=== PATIENT | male | born 1980 | race Caucasian/White ===

== ENCOUNTER 2020-09-09 15:06 | Emergency (ER) | payer OTHER ==
[2020-09-09 15:20] VITALS: O2SAT 97
[2020-09-09] MEDS ORDERED: MORPHINE SULFATE 4 MG INJ IV ONE (15:26)
[2020-09-09] MEDS ORDERED: Zofran 4 MG/2 ML VIAL IV ONE (15:26)
[2020-09-09] MEDS ORDERED: Zofran 4 MG/2 ML VIAL ONE (16:16)
[2020-09-09] MEDS ORDERED: MORPHINE SULFATE 4 MG INJ ONE (16:16)
[2020-09-09 16:18] LABS: Absolute Neutrophil Ct (ANC) 3.68 (1.4-6.9); BASOPHIL % 0.5 % (0.0-0.4); Basophil (Absolute #) 0.03 (0-0.4); Eosinophil % 1.1 % (0.00-5.0); Eosinophil (Absolute #) 0.06 (0-0.5); Hematocrit 44.8 % (42-50); Hemoglobin 14.7 gm/dl (12.5-18.0); Lymphocyte (Absolute #) 1.52 (1.0-4.6); Lymphocytes % 26.8 % (24.0-44.0); Mean Cell Volume 88.5 fl (78-100); Mean Corpuscular Hemoglobin 29.1 pg (26-32); Mean Corpuscular Hgb Concent. 32.8 g/dl (32-36); Mean Platelet Volume 9.1 fl (7.5-11.0); Monocyte (Absolute #) 0.39 (0.0-1.3); Monocytes % 6.9 % (0.0-12.0); Neutrophil % 64.7 % (36.0-66.0); Platelet Count 247 K/mm3 (150-450); Red Blood Count 5.06 M/mm3 (4.1-5.6); Red Cell Distribution Width 13.5 % (11.5-14.0); White Blood Count 5.7 K/mm3 (4.0-10.5)
[2020-09-09 16:23] LABS: Appearance SLIGHTLY CLOUDY (CLEAR); Bilirubin NEGATIVE (NEGATIVE); Blood NEGATIVE Ery/ul (0-5); Glucose NEGATIVE (NEGATIVE); Ketones NEGATIVE (NEGATIVE); Leukocyte Esterase NEGATIVE (NEGATIVE); Mucus SLIGHT /HPF (NEGATIVE); Nitrite NEGATIVE (NEGATIVE); Protein,Urine Dip NEGATIVE (Negative); Specific Gravity 1.023 (1.005-1.025); Urobilinogen NEGATIVE mg/dL (0-1)
--- NOTE | 2020-09-09 16:26 | XRAY ---
Indication: Right scrotal pain. Epididymitis versus hernia. Two-dimensional testicular sonogram performed. Comparison: None Both testicles homogeneous in echogenicity with normal color flow. Right testicle measures 4.7 x 2.8 x 3.9 cm and the left measures 4.8 x 2.5 x 3.8 cm. A few tiny bilateral epididymal cysts, largest 1 cm on the right. Negative for epididymitis. Tiny nonspecific bilateral hydroceles. No suspicious solid extratesticular mass. Impression: A few tiny bilateral epididymal cysts. Remaining testicular sonogram is negative.
[2020-09-09 16:31] LABS: ALBUMIN 4.8 g/dL (3.5-5.0); ALKALINE PHOSPHATASE 64 U/L (38-126); ANION GAP 15.4 MEQ/L (5-15); BLOOD UREA NITROGEN 11 mg/dL (9-20); CHLORIDE 100 mmol/L (98-107); Carbon Dioxide 27 mmol/L (22-30); Creatinine 1 0.91 mg/dL (0.66-1.25); EST GLOMERULAR FILTRATION RATE > 60.0 ML/MIN; Glucose 87 mg/dL (74-106); Potassium 4.6 mmol/L (3.5-5.1); SGOT/AST 37 U/L (17-59); SGPT/ALT 27 U/L (0-50); SODIUM 137 mmol/L (137-145); Total Protein 8.2 g/dL (6.3-8.2)
--- NOTE | 2020-09-09 16:56 | XRAY ---
Indication: Right testicle pain 3 weeks. Inguinal hernia. Multiple contiguous axial images obtained through the pelvis only using 80 cc Isovue 370 contrast. Comparison: None Visualized bowel loops appear nonobstructed. Normal appendix. No free fluid/air. Visualized inferior kidneys, ureters, bladder, arteries, and veins are unremarkable. No pathologic pelvic or inguinal lymphadenopathy. No ventral or inguinal hernias either. Visualized osseous structures intact. Impression: Negative CT pelvis with contrast exam.
[2020-09-09 18:01] VITALS: BP 155/96; PULSE 76
--- NOTE | 2020-09-09 18:09 | ERPHSYRPT ---
- History of Present Illness Time Seen by Provider: 09/09/20 15:13 Source: patient Exam Limitations: no limitations Patient Subjective Stated Complaint: Pt states that he has an ingunal hernia and he doesn't feel anything popped out but he is having squeezing pain in his right testicle Triage Nursing Assessment: Pt brought to the ER by his girlfriend, vitals wnl, rates testicle pain as 8/10, pulses normal, skin n/w/d, doesn't appear to be in any distress Physician History: 39 years old male with history of GERD ulcerative colitis presented in the ER with chief complaint of right inguinal/scrotal pain for the last 2 weeks intermittently progressively worsening. Patient reports sharp shooting pain in the right groin/testicle which is aggravated with activity and partial relief with being still but does not completely go away. Patient was seen recently at another ER with CT showing right inguinal hernia. Patient is worried about getting obstruction/incarceration of hernia. Denies any difficulty urination. Denies any history of STD/discharge. Timing/Duration: week(s) (2), gradual onset, worse Activites at Onset: rest Quality: sharpness Onset Location: groin, scrotal, right testicle Pain Radiation: groin Severity of Pain-Max: severe Severity of Pain-Current: severe Modifying Factors: Improves With: lying down, position. Worsens With: movement, palpation Associated Symptoms: mass, No abdominal pain, No fever, No loss of bladder control, No lower back pain Sexual intercourse history: non-contributory Allergies/Adverse Reactions: metronidazole [From Flagyl] Allergy (Verified 09/09/20 15:20) Home Medications: Atorvastatin Calcium [Lipitor] 40 mg PO DAILY 09/09/20 [History] Diltiazem HCl [Cardizem] 60 mg PO BID 09/09/20 [History] Metoprolol Tartrate 25 mg [Lopressor 25MG Tab] 25 mg PO BID 09/09/20 [History] Omeprazole Magnesium [Prilosec Otc] 40 mg PO DAILY 09/09/20 [History] PANTOPRAZOLE 40 mg Tablet [Protonix 40MG Tablet] 40 mg PO BID 09/09/20 [History] Sucralfate 1 gm [Carafate 1 GM] 1,000 mg PO QID 09/09/20 [History] Tofacitinib Citrate [Xeljanz Xr] 22 mg PO DAILY 09/09/20 [History] lisinopriL [Zestril] 30 mg PO DAILY 09/09/20 [History] Travel Risk - International Travel Have you traveled outside of the country in past 3 weeks: No - Coronavirus Screening Are you exhibiting any of the following symptoms?: No Close contact with a COVID-19 positive Pt in past 14-21 Days: No - Vaccine Status Have you recieved a Covid-19 vaccination: No - Past Medical History Pertinent Past Medical History: Yes Cardiac History: High Cholesterol, Hypertension Other Medical History: Assending aoritc anuerysm - Past Surgical History Past Surgical History: Yes Other Surgical History: 2 skin grafts. hemmroidectomy. anal spincterotomy - Social History Smoking Status: Former smoker Exposure to second hand smoke: No Drug Use: marijuana Patient Lives Alone: No - Review of Systems Constitutional: No Symptoms Eyes: No Symptoms Ears, Nose, & Throat: No Symptoms Respiratory: No Symptoms Cardiac: No Symptoms Abdominal/Gastrointestinal: No Symptoms Genitourinary Symptoms: Testicle Pain Musculoskeletal: No Symptoms Skin: No Symptoms Neurological: No Symptoms Psychological: No Symptoms Endocrine: No Symptoms Hematologic/Lymphatic: No Symptoms Immunological/Allergic: No Symptoms - Nursing Vital Signs Nursing Vital Signs: Initial Vital Signs Temperature 97.3 F 09/09/20 15:11 Pulse Rate 66 09/09/20 15:11 Blood Pressure 136/94 09/09/20 15:11 O2 Sat by Pulse Oximetry 97 09/09/20 15:11 Pain Scale Pain Intensity 7 - Physical Exam General Appearance: no apparent distress, alert Eye Exam: PERRL/EOMI, eyes nml inspection Ears, Nose, Throat Exam: normal ENT inspection, pharynx normal Neck Exam: normal inspection, supple, full range of motion Respiratory Exam: normal breath sounds, lungs clear Cardiovascular Exam: regular rate/rhythm, normal heart sounds Gastrointestinal/Abdomen Exam: soft, normal bowel sounds, No tenderness Male Genital Exam: normal genitalia, no hernia, epididymal tenderness, testicular tenderness (R) (Positive cremasteric reflex. Negative expansile cough impulse on the right.), No erythema, No scrotum tenderness (R), No scrotum tenderness (L), No inguinal lymphadenopathy Back Exam: normal inspection Extremity Exam: normal inspection, normal range of motion Neurologic Exam: alert, oriented x 3, cooperative Skin Exam: normal color SpO2 Interpretation: normal SpO2: 97 O2 Delivery: Room Air Ordered Tests: Active Orders 24 hr Category Date Time Status IV Insertion STAT Care 09/09/20 15:26 Completed PELVIS WITH CONTRAST [CT] Stat Exams 09/09/20 16:00 Completed TESTICLE [US] Stat Exams 09/09/20 15:26 Completed CBC W DIFF Stat Lab 09/09/20 16:05 Completed CMP Stat Lab 09/09/20 16:05 Completed Lactic Acid Stat Lab 09/09/20 15:26 Completed UA W/RFX UR CULTURE Stat Lab 09/09/20 16:15 Completed Medication Summary Discontinued Medications Generic Name Dose Route Start Last Admin Trade Name Gatitoq PRN Reason Stop Dose Admin Morphine Sulfate 4 mg 09/09/20 15:26 09/09/20 16:17 Morphine Sulfate 4 Mg Inj IV 09/09/20 15:27 4 mg STAT ONE Administration Morphine Sulfate Confirm 09/09/20 16:16 Morphine Sulfate 4 Mg Inj Administered 09/09/20 16:17 Dose 4 mg .ROUTE .STK-MED ONE Ondansetron HCl 4 mg 09/09/20 15:26 09/09/20 16:17 Zofran 4 Mg/2 Ml Vial IV 09/09/20 15:27 4 mg STAT ONE Administration Ondansetron HCl Confirm 09/09/20 16:16 Zofran 4 Mg/2 Ml Vial Administered 09/09/20 16:17 Dose 4 mg .ROUTE .STK-MED ONE Lab/Rad Data: Laboratory Result Diagrams 09/09/20 16:05 09/09/20 16:05 Laboratory Results 09/09/20 09/09/20 09/09/20 Range/Units 16:15 16:05 16:05 WBC 5.7 (4.0-10.5) K/mm3 RBC 5.06 (4.1-5.6) M/mm3 Hgb 14.7 (12.5-18.0) gm/dl Hct 44.8 (42-50) % MCV 88.5 (78-100) fl MCH 29.1 (26-32) pg MCHC 32.8 (32-36) g/dl RDW 13.5 (11.5-14.0) % Plt Count 247 (150-450) K/mm3 MPV 9.1 (7.5-11.0) fl Gran % 64.7 (36.0-66.0) % Eos # (Auto) 0.06 (0-0.5) Absolute Lymphs (auto) 1.52 (1.0-4.6) Absolute Monos (auto) 0.39 (0.0-1.3) Lymphocytes % 26.8 (24.0-44.0) % Monocytes % 6.9 (0.0-12.0) % Eosinophils % 1.1 (0.00-5.0) % Basophils % 0.5 (0.0-0.4) % Absolute Granulocytes 3.68 (1.4-6.9) Basophils # 0.03 (0-0.4) Sodium 137 (137-145) mmol/L Potassium 4.6 (3.5-5.1) mmol/L Chloride 100 (98-107) mmol/L Carbon Dioxide 27 (22-30) mmol/L Anion Gap 15.4 H (5-15) MEQ/L BUN 11 (9-20) mg/dL Creatinine 0.91 (0.66-1.25) mg/dL Estimated GFR > 60.0 ML/MIN Glucose 87 (74-106) mg/dL Lactic Acid (0.4-2.0) Calcium 10.0 (8.4-10.2) mg/dL Total Bilirubin 0.80 (0.2-1.3) mg/dL AST 37 (17-59) U/L ALT 27 (0-50) U/L Alkaline Phosphatase 64 (38-126) U/L Serum Total Protein 8.2 (6.3-8.2) g/dL Albumin 4.8 (3.5-5.0) g/dL Urine Color NATHAN (YELLOW) Urine Appearance SLIGHTLY CLOUDY (CLEAR) Urine pH 5.0 (5-6) Ur Specific [place] 1.023 (1.005-1.025) Urine Protein NEGATIVE (Negative) Urine Ketones NEGATIVE (NEGATIVE) Urine Blood NEGATIVE (0-5) Pravin/ul Urine Nitrite NEGATIVE (NEGATIVE) Urine Bilirubin NEGATIVE (NEGATIVE) Urine Urobilinogen NEGATIVE (0-1) mg/dL Ur Leukocyte Esterase NEGATIVE (NEGATIVE) Urine WBC (Auto) NONE (0-5) /HPF Urine RBC (Auto) NONE (0-2) /HPF U Epithel Cells (Auto) NONE (FEW) /HPF Urine Bacteria (Auto) NONE (NEGATIVE) /HPF Urine Mucus (Auto) SLIGHT (NEGATIVE) /HPF Urine Culture Reflexed NO (NO) Urine Glucose NEGATIVE (NEGATIVE) mg/dL 09/09/20 Range/Units 15:26 WBC (4.0-10.5) K/mm3 RBC (4.1-5.6) M/mm3 Hgb (12.5-18.0) gm/dl Hct (42-50) % MCV (78-100) fl MCH (26-32) pg MCHC (32-36) g/dl RDW (11.5-14.0) % Plt Count (150-450) K/mm3 MPV (7.5-11.0) fl Gran % (36.0-66.0) % Eos # (Auto) (0-0.5) Absolute Lymphs (auto) (1.0-4.6) Absolute Monos (auto) (0.0-1.3) Lymphocytes % (24.0-44.0) % Monocytes % (0.0-12.0) % Eosinophils % (0.00-5.0) % Basophils % (0.0-0.4) % Absolute Granulocytes (1.4-6.9) Basophils # (0-0.4) Sodium (137-145) mmol/L Potassium (3.5-5.1) mmol/L Chloride (98-107) mmol/L Carbon Dioxide (22-30) mmol/L Anion Gap (5-15) MEQ/L BUN (9-20) mg/dL Creatinine (0.66-1.25) mg/dL Estimated GFR ML/MIN Glucose (74-106) mg/dL Lactic Acid 1.4 (0.4-2.0) Calcium (8.4-10.2) mg/dL Total Bilirubin (0.2-1.3) mg/dL AST (17-59) U/L ALT (0-50) U/L Alkaline Phosphatase (38-126) U/L Serum Total Protein (6.3-8.2) g/dL Albumin (3.5-5.0) g/dL Urine Color (YELLOW) Urine Appearance (CLEAR) Urine pH (5-6) Ur Specific [place] (1.005-1.025) Urine Protein (Negative) Urine Ketones (NEGATIVE) Urine Blood (0-5) Pravin/ul Urine Nitrite (NEGATIVE) Urine Bilirubin (NEGATIVE) Urine Urobilinogen (0-1) mg/dL Ur Leukocyte Esterase (NEGATIVE) Urine WBC (Auto) (0-5) /HPF Urine RBC (Auto) (0-2) /HPF U Epithel Cells (Auto) (FEW) /HPF Urine Bacteria (Auto) (NEGATIVE) /HPF Urine Mucus (Auto) (NEGATIVE) /HPF Urine Culture Reflexed (NO) Urine Glucose (NEGATIVE) mg/dL - Progress Progress: improved, pain not gone completely Progress Note: 09/09/20 18:07 39 years old is evaluated for right testicular/inguinal pain. Patient was convinced that he has a right inguinal hernia which I did not appreciate on exam. I have obtained ultrasound which is negative for any inguinal hernia mass, torsion or any other acute pathology but does have a small hydrocele cysts bilaterally. Patient does have tenderness in the epididymis. Because of significant tenderness I have obtained CT pelvis which is negative for any hernia mass as well. Has normal white count, unremarkable chemistries. No UTI. I would give him a short course of Cipro and pain medication and outpatient urology follow-up recommended. Counseled pt/family regarding: lab results, diagnosis, need for follow-up, rad results - Departure Departure Disposition: Home Clinical Impression: Testicular pain, right Condition: Stable Critical Care Time: No Referrals: DOCTOR,NO FAMILY [Primary Care Provider] - TARIQ KERR [COURTESY STAFF] - (1-2 days for reevaluation) Instructions: Epididymitis (DC) Additional Instructions: Use scrotal support. Use pain medications as needed. Follow-up with urology and primary care for reevaluation. Return to ER for worsening pain or if develop swelling/difficulty urination/fever chills etc. Prescriptions: Hydrocodone/APAP 5/325 [[place] 5/325 mg] 1 each PO Q6H PRN PRN #12 tablet MDD 4 PRN Reason: Pain Ciprofloxacin [Cipro 500 MG] 500 mg PO BID #14 tablet
== END 2020-09-09 18:28 | disposition home or self-care (01) ==
LOC: ED 15:06
DX: N50.811 Right testicular pain (principal)
CPT/HCPCS: 36000; 36415; 72193; 76870; 80053; 81001; 83605; 85025; 96374; 96375; 99284; J2270; J2405

== ENCOUNTER 2020-10-10 13:43 | Emergency (ER) | payer OTHER ==
--- NOTE | 2020-10-10 13:45 | ERPHSYRPT ---
- History of Present Illness Time Seen by Provider: 10/10/20 13:45 Historian: patient Exam Limitations: no limitations Physician History: This is a 39-year-old white male who has a history of ulcerative colitis, hypertension, gastroesophageal reflux disease and was told in August that he had a right inguinal hernia. Patient presents with complaints of pain in the right perineal area. Patient lives in [place] and is heading back to his home in [place]. However the pain has worsened over his stay here. Patient was seen in our emergency department on 09/09/2020 for same complaint. He was given a prescription of Cipro because it was felt that he might have epididymitis. His symptoms persisted and he was given a prescription at that different institution of Bactrim. He just completed that Bactrim antibiotic yesterday. During his work-up here on 09/09/2020 his ultrasound of the testicles were negative. CAT scan of the abdomen pelvis was also negative. Patient has been afebrile. He is also had diarrhea that appears to be worse with eating and drinking per his report. Patient does have an appointment to see a director of golf this month as well as an appointment to see a urologist later this month. States that he is allergic to Flagyl. Timing/Duration: week(s) (Several), other ([employer]) Activities at Onset: other (Persistent over the last month worse after eating and drinking) Quality: burning Abdominal Pain Onset Location: other (Right side perineal) Pain Radiation: no radiation Severity of Pain-Max: moderate Severity of Pain-Current: mild Modifying Factors: Improves With: eating (Brings on the diarrhea) Previous symptoms: same symptoms as today, recently seen, recently treated Allergies/Adverse Reactions: metronidazole [From Flagyl] Allergy (Verified 10/10/20 14:06) Home Medications: Atorvastatin Calcium [Lipitor] 40 mg PO DAILY 09/09/20 [History] Diltiazem HCl [Cardizem] 60 mg PO BID 09/09/20 [History] Metoprolol Tartrate 25 mg [Lopressor 25MG Tab] 25 mg PO BID 09/09/20 [History] Omeprazole Magnesium [Prilosec Otc] 40 mg PO DAILY 09/09/20 [History] PANTOPRAZOLE 40 mg Tablet [Protonix 40MG Tablet] 40 mg PO BID 09/09/20 [History] Sucralfate 1 gm [Carafate 1 GM] 1,000 mg PO QID 09/09/20 [History] Tofacitinib Citrate [Xeljanz Xr] 22 mg PO DAILY 09/09/20 [History] lisinopriL [Zestril] 30 mg PO DAILY 09/09/20 [History] Travel Risk - International Travel Have you traveled outside of the country in past 3 weeks: No - Coronavirus Screening Are you exhibiting any of the following symptoms?: No Close contact with a COVID-19 positive Pt in past 14-21 Days: No - Vaccine Status Have you recieved a Covid-19 vaccination: No - Review of Systems Constitutional: No Symptoms Eyes: No Symptoms Ears, Nose, & Throat: No Symptoms Respiratory: No Symptoms Cardiac: No Symptoms Abdominal/Gastrointestinal: Diarrhea Genitourinary Symptoms: No Symptoms Musculoskeletal: No Symptoms Skin: No Symptoms Neurological: No Symptoms Psychological: No Symptoms Endocrine: No Symptoms Hematologic/Lymphatic: No Symptoms Immunological/Allergic: No Symptoms All Other Systems: Reviewed and Negative - Past Medical History Pertinent Past Medical History: Yes Cardiac History: High Cholesterol, Hypertension Respiratory History: No Pertinent History Endocrine Medical History: No Pertinent History Musculoskeletal History: No Pertinent History GI Medical History: Other (Patient has ulcerative colitis) History: No Pertinent History Psycho-Social History: No Pertinent History Male Reproductive Disorders: No Pertinent History Other Medical History: Assending aoritc anuerysm - Past Surgical History Past Surgical History: Yes Other Surgical History: 2 skin grafts. hemmroidectomy. anal spincterotomy - Social History Smoking Status: Former smoker Exposure to second hand smoke: No Drug Use: marijuana Patient Lives Alone: No - Nursing Vital Signs Nursing Vital Signs: Initial Vital Signs Temperature 98 F 10/10/20 13:53 Pulse Rate 76 10/10/20 13:53 Respiratory Rate 18 10/10/20 13:53 Blood Pressure 129/97 10/10/20 13:53 O2 Sat by Pulse Oximetry 98 10/10/20 13:53 Pain Scale Pain Intensity 7 - Physical Exam General Appearance: no apparent distress, alert, anxiety, obese Eye Exam: PERRL/EOMI, eyes nml inspection Ears, Nose, Throat Exam: normal ENT inspection, moist mucous membranes Neck Exam: normal inspection, non-tender, supple, full range of motion Respiratory Exam: airway intact, No chest tenderness, No respiratory distress Gastrointestinal/Abdomen Exam: soft, normal bowel sounds, tenderness (Diffuse), guarding, No rebound Male Genitalia Exam: normal genitalia, other (In the perineal area more on the right side than the left), No hernia, No testicular tenderness, No testicular mass, No penile discharge Rectal Exam: not done Back Exam: normal inspection, normal range of motion, No CVA tenderness, No vertebral tenderness Extremity Exam: normal inspection, normal range of motion, pelvis stable Neurologic Exam: alert, oriented x 3, cooperative, door builder II-XII nml as tested, normal mood/affect, nml cerebellar function, nml station & gait, sensation nml Skin Exam: normal color, warm, dry Lymphatic Exam: No adenopathy SpO2 Interpretation: normal O2 Delivery: Room Air Ordered Tests: Active Orders 24 hr Category Date Time Status ABDOMEN AND PELVIS W/0 CONTRAS [CT] Stat Exams 10/10/20 14:12 Taken Medication Summary Discontinued Medications Generic Name Dose Route Start Last Admin Trade Name Laverne PRN Reason Stop Dose Admin Hydromorphone HCl 1 mg 10/10/20 15:31 Hydromorphone 1 Mg/Ml Injection IM 10/10/20 15:32 STAT ONE Ondansetron HCl 4 mg 10/10/20 15:31 Zofran 4 Mg/2 Ml Vial IV 10/10/20 15:32 STAT ONE - Progress Progress: unchanged, pain not gone completely, re-examined Progress Note: 10/10/20 15:33 Medical decision making: This patient does not have an acute emergent issue. He has had the symptoms for nearly 2 months. He has been evaluated by CAT scan 2 separate times within the last nearly 2 months. There is no acute emergent findings. Today's CAT scan of the abdomen pelvis without contrast shows a no nspecific posterior mid to upper right partially exophytic lesion. He has had an ultrasound of the testicle that he has pain with that is negative for any acute emergent findings. Patient is wanting pain medication for discharge to home. I declined. I am giving him Dilaudid and Zofran in the emergency room. He is going home to [place]. He can follow-up with his primary care doctor for control of his chronic pain as an outpatient. He will obtain further evaluation by urologist and director of golf. I reviewed the CAT scan results with the patient today. He is to follow-up with the urologist regarding the symptoms he is having but also with the exophytic lesion of the right kidney. 10/10/20 15:37 Counseled pt/family regarding: diagnosis, need for follow-up, rad results - Departure Departure Disposition: Home Clinical Impression: Right testicular pain, Lesion of right qagan t[place]agung[place] kidney Condition: Stable Critical Care Time: No Referrals: DOCTOR,NO FAMILY [Primary Care Provider] - Additional Instructions: Your primary care physician tomorrow to make arrangements for follow-up appointment to discuss control of your chronic pain. Contact your director of golf and urologist tomorrow to see about moving your appointment to a sooner/earlier date.
[2020-10-10 15:00] VITALS: BP 141/98
[2020-10-10 15:02] VITALS: PULSE 72; O2SAT 98
[2020-10-10] MEDS ORDERED: Hydromorphone 1 mg/ml Injection IM ONE (15:31)
[2020-10-10] MEDS ORDERED: Zofran 4 MG/2 ML VIAL IV ONE (15:31)
[2020-10-10] MEDS ORDERED: NORCO 5/325 MG PO ONE (15:43)
[2020-10-10] MEDS ORDERED: Zofran 4 MG/2 ML VIAL ONE (15:51)
[2020-10-10] MEDS ORDERED: Hydromorphone 1 mg/ml Injection ONE (15:52)
[2020-10-10] MEDS ORDERED: NORCO 5/325 MG ONE (15:52)
--- NOTE | 2020-10-10 19:25 | XRAY ---
Indication: Abdomen and right testicle pain. No known injury. Multiple contiguous axial images obtained through the abdomen and pelvis without contrast. Comparison: CT pelvis September 09, 2020 Lung bases demonstrates minimal fibrosis/scarring. No infiltrate or effusion. Heart not enlarged. Noncontrasted stomach and bowel loops nonobstructed. Normal appendix. No free fluid/air. Gallbladder contracted without gallstones. 1 cm right mid renal exophytic cyst. Remaining liver, gallbladder, pancreas, spleen, adrenal glands, kidneys, ureters, bladder, and aorta are unremarkable for noncontrast exam. Osseous structures intact. No ventral or inguinal hernias. Impression: Right renal cyst. Remaining CT abdomen/pelvis without contrast exam is negative. Comment: Preliminary interpretation was made by [facility]. No critical discrepancy.
== END 2020-10-10 16:20 | disposition home or self-care (01) ==
LOC: ED 13:43
DX: N50.811 Right testicular pain (principal); N28.9 Disorder of kidney and ureter, unspecified
CPT/HCPCS: 74176; 96372; 96374; 99284; J1170; J2405; A9270-GY

== ENCOUNTER 2022-05-30 13:05 | Observation (INO) | payer OTHER ==
--- NOTE | 2022-05-30 13:46 | ERPHSYRPT ---
- History of Present Illness Time Seen by Provider: 05/30/22 13:20 Historian: patient Exam Limitations: no limitations Patient Subjective Stated Complaint: C/O chest pain that started approx 30-40 minutes ago. Patient states he was walking around inside of [facility] [place] with a friend when the pain started. Triage Nursing Assessment: Patient ambulated back to ER. No SOB noted. He is alert and oriented. Skin tone normal, warm, dry. PEREZ WNL. No edema. 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 Patient was walking in [facility] [place] when pain started. Pain described as ache that is substernal. Pain tends to radiate to his left scapula. Patient also has some discomfort at his right upper quadrant. Patient has a history of a cholecystectomy. No active pain at the moment. Pain was not associated with diaphoresis. However he did experience mild nausea. Currently not nauseous. Symptoms were moderate in intensity when present. No specific worsening or improving factors although pain occurred while patient was walking. Patient has history of hypertension. His cardiologi st is Paul Romano. Patient otherwise voices no other complaints or concerns at this time. Portions of this note were created with voice recognition technology. There may be grammatical, spelling, punctuation or sound alike errors Timing/Duration: today Activities at Onset: activity Quality: aching Location: substernal Chest Pain Radiation: back Severity of Pain-Max: moderate Severity of Pain-Current: mild Modifying Factors: Improves With: nothing Associated Symptoms: nausea, No vomiting, No shortness of breath, No fever, No syncope, No dizziness Prior Chest Pain/Cardiac Workup: echocardiography Nitro Today/Relief: no nitro taken today Aspirin Treatment Today: no aspirin today Allergies/Adverse Reactions: metronidazole [From Flagyl] Allergy (Verified 05/30/22 13:06) NSAIDS (Non-Steroidal Anti-Inflamma Adverse Reaction (Verified 05/30/22 17:09) Home Medications: Atorvastatin Calcium [Lipitor] 1 tab PO HS 05/30/22 [History] Diltiazem HCl 30 mg [Cardizem 30 MG] 60 mg PO BID 05/30/22 [History] Metoprolol Tartrate 25 mg [Lopressor 25MG Tab] 1 tab PO BID 05/30/22 [History] lisinopriL [Zestril] 1 tab PO DAILY 05/30/22 [History] Hx Tetanus, Diphtheria Vaccination/Date Given: Yes Hx Influenza Vaccination/Date Given: Yes (January 2022) Hx Pneumococcal Vaccination/Date Given: No Immunizations Up to Date: Yes Travel Risk - International Travel Have you traveled outside of the country in past 3 weeks: No - Coronavirus Screening Are you exhibiting any of the following symptoms?: No - Vaccine Status Have you recieved a Covid-19 vaccination: Yes Inhalation Therapist: [employer] - Vaccination Dates Date of 2cond Vaccination (if applicable): ? - Review of Systems Constitutional: No Symptoms, No Fever, No Chills Eyes: No Symptoms Ears, Nose, & Throat: No Symptoms Respiratory: No Symptoms, No Cough, No Dyspnea Cardiac: No Symptoms, No Chest Pain, No Edema, No Syncope Abdominal/Gastrointestinal: No Symptoms, No Abdominal Pain, No Nausea, No Vomiting, No Diarrhea Genitourinary Symptoms: No Symptoms, No Dysuria Musculoskeletal: No Symptoms, No Back Pain, No Neck Pain Skin: No Symptoms, No Rash Neurological: No Symptoms, No Dizziness, No Focal Weakness, No Sensory Changes Psychological: No Symptoms Endocrine: No Symptoms Hematologic/Lymphatic: No Symptoms Immunological/Allergic: No Symptoms All Other Systems: Reviewed and Negative - Past Medical History Pertinent Past Medical History: Yes Neurological History: No Pertinent History ENT History: No Pertinent History Cardiac History: High Cholesterol, Hypertension Respiratory History: CHF Endocrine Medical History: No Pertinent History Musculoskeletal History: No Pertinent History GI Medical History: Gallbladder Disease, Other History: No Pertinent History Psycho-Social History: No Pertinent History Male Reproductive Disorders: No Pertinent History Other Medical History: Assending aoritc anuerysm, ulcerative colitis - Past Surgical History Past Surgical History: Yes Gastrointestinal: Cholecystectomy Other Surgical History: 2 skin grafts, hemmroidectomy, anal spincterotomy - Social History Smoking Status: Former smoker Exposure to second hand smoke: No Drug Use: marijuana Patient Lives Alone: Yes - Nursing Vital Signs Nursing Vital Signs: Initial Vital Signs Temperature 98.6 F 05/30/22 13:07 Pulse Rate 108 H 05/30/22 13:07 Respiratory Rate 25 H 05/30/22 13:07 Blood Pressure 158/112 05/30/22 13:07 Pain Scale Pain Intensity 6 - Physical Exam General Appearance: no apparent distress, alert Eye Exam: PERRL/EOMI, eyes nml inspection Ears, Nose, Throat Exam: normal ENT inspection, TMs normal, pharynx normal, moist mucous membranes Neck Exam: normal inspection, non-tender, supple, full range of motion Respiratory Exam: normal breath sounds, lungs clear, airway intact, No respiratory distress Cardiovascular Exam: regular rate/rhythm, normal heart sounds, normal peripheral pulses Gastrointestinal/Abdomen Exam: soft, No tenderness, No mass Back Exam: normal inspection, No CVA tenderness, No vertebral tenderness Extremity Exam: normal inspection, normal range of motion Neurologic Exam: alert, oriented x 3, cooperative, normal mood/affect, sensation nml, No motor deficits Skin Exam: normal color, warm, dry Lymphatic Exam: No adenopathy SpO2 Interpretation: normal SpO2: 98 O2 Delivery: Room Air - Course Nursing assessment & vital signs reviewed: Yes EKG Interpreted by Me: RATE (94), Sinus Rhythm, Left Vaughan Deviation, NORMAL INTERVALS (Left axis deviation consider left anterior fascicular block left ventricular hypertrophy ST elevation probable normal early repull pattern) - CT Exams Chest CT Interpretation: Tele-radiologist Report (Normal CTA chest with contrast) Ordered Tests: Active Orders 24 hr Category Date Time Status Sheltered Workshop Worker STAT Care 05/30/22 13:30 Active EKG-ER Only STAT Care 05/30/22 13:29 Active IV Insertion STAT Care 05/30/22 13:29 Active Pulse Oximetry (ED) STAT Care 05/30/22 13:29 Active CTA ABD/PEL W AND/OR W/O CONTR [CT] Stat Exams 05/30/22 13:33 Completed CTA CHEST W AND/OR WO [CT] Stat Exams 05/30/22 13:31 Completed CBC W DIFF Stat Lab 05/30/22 13:18 Completed CMP Stat Lab 05/30/22 13:18 Completed NT PRO BNP Stat Lab 05/30/22 13:18 Completed TROPONIN Q4H Lab 05/30/22 13:18 Completed TROPONIN Q4H Lab 05/30/22 16:20 Completed TROPONIN Q4H Lab 05/30/22 21:30 Ordered Urine Triage Profile Stat Lab 05/30/22 13:30 Ordered Transfer Order Routine Transfer 05/30/22 Ordered Medication Summary Discontinued Medications Generic Name Dose Route Start Last Admin Trade Name Laverne PRN Reason Stop Dose Admin Morphine Sulfate 4 mg 05/30/22 14:35 05/30/22 14:43 Morphine Sulfate 4 Mg/Ml Injection IV 05/30/22 14:36 4 mg STAT ONE Administration Morphine Sulfate Confirm 05/30/22 14:41 Morphine Sulfate 4 Mg/Ml Injection Administered 05/30/22 14:42 Dose 4 mg .ROUTE .STK-MED ONE Morphine Sulfate 4 mg 05/30/22 17:10 Morphine Sulfate 4 Mg/Ml Injection IV 05/30/22 17:11 STAT ONE Ondansetron HCl 4 mg 05/30/22 14:35 05/30/22 14:43 Ondansetron Hcl 4 Mg/2 Ml Vial IV 05/30/22 14:36 4 mg STAT ONE Administration Ondansetron HCl Confirm 05/30/22 14:41 Ondansetron Hcl 4 Mg/2 Ml Vial Administered 05/30/22 14:42 Dose 4 mg .ROUTE .STK-MED ONE Potassium Chloride 40 meq 05/30/22 16:58 05/30/22 17:05 Potassium Chloride Tab 10 Meq Tab PO 05/30/22 16:59 40 meq STAT ONE Administration Potassium Chloride Confirm 05/30/22 17:05 Potassium Chloride Tab 10 Meq Tab Administered 05/30/22 17:06 Dose 40 meq PO .STK-MED ONE Lab/Rad Data: Laboratory Result Diagrams 05/30/22 13:18 05/30/22 13:18 Laboratory Results 05/30/22 05/30/22 05/30/22 Range/Units 16:20 16:20 13:18 WBC (4.0-10.5) x10^3/uL RBC (4.1-5.6) x10^6/uL Hgb (12.5-18.0) g/dL Hct (42-50) % MCV (78-100) fL MCH (26-32) pg MCHC (32-36) g/dL RDW (11.5-14.0) % Plt Count (150-450) x10^3/uL MPV (7.5-11.0) fL Gran % (36.0-66.0) % Immature Gran % (Auto) (0.00-0.4) % Nucleat RBC Rel Count (0.00-0.1) % Eos # (Auto) (0-0.5) x10^3/uL Immature Gran # (Auto) (0.00-0.03) x10^3u/L Absolute Lymphs (auto) (1.0-4.6) x10^3/uL Absolute Monos (auto) (0.0-1.3) x10^3/uL Absolute Nucleated RBC (0.00-0.01) x10^3u/L Lymphocytes % (24.0-44.0) % Monocytes % (0.0-12.0) % Eosinophils % (0.00-5.0) % Basophils % (0.0-0.4) % Absolute Granulocytes (1.4-6.9) x10^3/uL Basophils # (0-0.4) x10^3/uL Sodium (137-145) mmol/L Potassium (3.5-5.1) mmol/L Chloride (98-107) mmol/L Carbon Dioxide (22-30) mmol/L Anion Gap (5-15) MEQ/L BUN (9-20) mg/dL Creatinine (0.66-1.25) mg/dL Estimated GFR ML/MIN Glucose (74-106) mg/dL Calcium (8.4-10.2) mg/dL Total Bilirubin (0.2-1.3) mg/dL AST (17-59) U/L ALT (0-50) U/L Alkaline Phosphatase (38-126) U/L Troponin I < 0.012 < 0.012 (0.000-0.034) ng/mL NT-Pro-B Natriuret Pep (0-450) pg/mL Serum Total Protein (6.3-8.2) g/dL Albumin (3.5-5.0) g/dL Influenza Type A Ag NEGATIVE (NEGATIVE) Influenza Type B Ag NEGATIVE (NEGATIVE) RSV (PCR) NEGATIVE (Negative) SARS-CoV-2 (PCR) NEGATIVE (NEGATIVE) 05/30/22 05/30/22 Range/Units 13:18 13:18 WBC 6.0 (4.0-10.5) x10^3/uL RBC 4.85 (4.1-5.6) x10^6/uL Hgb 14.3 (12.5-18.0) g/dL Hct 43.7 (42-50) % MCV 90.1 (78-100) fL MCH 29.5 (26-32) pg MCHC 32.7 (32-36) g/dL RDW 13.2 (11.5-14.0) % Plt Count 234 (150-450) x10^3/uL MPV 8.8 (7.5-11.0) fL Gran % 61.7 (36.0-66.0) % Immature Gran % (Auto) 0.3 (0.00-0.4) % Nucleat RBC Rel Count 0.0 (0.00-0.1) % Eos # (Auto) 0.05 (0-0.5) x10^3/uL Immature Gran # (Auto) 0.02 (0.00-0.03) x10^3u/L Absolute Lymphs (auto) 1.77 (1.0-4.6) x10^3/uL Absolute Monos (auto) 0.43 (0.0-1.3) x10^3/uL Absolute Nucleated RBC 0.00 (0.00-0.01) x10^3u/L Lymphocytes % 29.5 (24.0-44.0) % Monocytes % 7.2 (0.0-12.0) % Eosinophils % 0.8 (0.00-5.0) % Basophils % 0.5 (0.0-0.4) % Absolute Granulocytes 3.71 (1.4-6.9) x10^3/uL Basophils # 0.03 (0-0.4) x10^3/uL Sodium 136 L (137-145) mmol/L Potassium 3.4 L (3.5-5.1) mmol/L Chloride 103 (98-107) mmol/L Carbon Dioxide 24 (22-30) mmol/L Anion Gap 12.4 (5-15) MEQ/L BUN 12 (9-20) mg/dL Creatinine 0.84 (0.66-1.25) mg/dL Estimated GFR > 60.0 ML/MIN Glucose 114 H (74-106) mg/dL Calcium 9.3 (8.4-10.2) mg/dL Total Bilirubin 1.20 (0.2-1.3) mg/dL AST 34 (17-59) U/L ALT 95 H (0-50) U/L Alkaline Phosphatase 86 (38-126) U/L Troponin I (0.000-0.034) ng/mL NT-Pro-B Natriuret Pep < 11.5 (0-450) pg/mL Serum Total Protein 8.3 H (6.3-8.2) g/dL Albumin 4.9 (3.5-5.0) g/dL Influenza Type A Ag (NEGATIVE) Influenza Type B Ag (NEGATIVE) RSV (PCR) (Negative) SARS-CoV-2 (PCR) (NEGATIVE) - Progress Progress: improved Air Movement: good Progress Note: Patient is a 41-year-old male with a history of CHF and aortic root aneurysm presents to our ED with complaints of chest pain radiating to his left scapula and right upper quadrant. Pain occurred approximately 30 to 40 minutes prior to arrival. Review of system negative. Physical exam findings are nonremarkable. Patient's symptoms are acute in nature. Complexity of complaint is moderate. Patient has a history of aortic root aneurysm which is a comorbidity that relates directly to patient's complaint. Tests ordered include CBC CMP proBNP troponin urine triage. Patient had a CT angio of his chest and a second CT angio of the abdomen and pelvis. Laboratory work-up essentially nonremarkable. Troponin negative. BNP negative. CTA chest is negative for dissection and aneurysm. We obtained a CT a chest report produced from [facility]. Report was reviewed and reveals a 4.4 cm aortic root aneurysm. A second report read from patient's "my chart" from a hospital in [place] shows that patient has a mildly dilated ascending thoracic aorta measuring 4.6 cm in diameter. These 2 reports are in direct discrepancy with our read which shows no aneurysm at all. I spoke directly to our radiologist Dr. Samano who reviewed the images while I was in his office and stated there was no aneurysm observed. He felt that the report from [facility] may be an error or a typo of some sort. But he is sure that there is no aortic aneurysm observed. EKG reveals a sinus rhythm with a rate of 94. Left axis deviation possible left anterior fascicular block. Left ventricular hypertrophy observed. There is ST elevation however likely due to early repolarization pattern The results of the laboratory and imaging studies were used in the medical decision-making process. Upon arrival to our ED patient was pain-free. However later in the course of his stay in our ED patient began to experience chest pain similar in nature to the pain that brought him in to our ED for evaluation. Patient received morphine for pain control. Patient also received a dose of Zofran for nausea. Patient was reassessed. Patient states that he is currently pain-free. The medications appear to have resolved patient's discomfort. Plan of care discussed with patient. We will obtain a second troponin. If the troponin is negative patient will likely be discharged home as long as vitals remained stable and patient remains chest pain-free. Level of EM service provided was moderate. No critical care time. Complexity of the problem addressed was moderate. Patient's main complaint was chest pain with radiation to right upper quadrant and left scapula. Amount and complexity of data reviewed and analyzed was moderate. Risk of complications and risks of morbidity/mortality of patient management is moderate. Case discussed with Dr. Mcclellan who accepts admission to observation. Plan of care discussed with patient. He agrees to admission [facility] for further evaluation and treatment. Per Dr. Mcclellan a 2D echocardiogram ordered for the morning. Patient received a dose of nitroglycerin as per treatment for chest pain /angina/ACS. We did not administer aspirin due to adverse reaction/allergy. Patient serves as an independent historian. Patient was competent to provide complete history for our HPI. Patient is a full code. Patient will be admitted to our hospital for further evaluation and treatment. Time invested for disposition is approximately 10 to 15 minutes. Document discharge diagnosis and plan of care, disposition, admit discharge transfer Portions of this note were created with voice recognition technology. There may be grammatical, spelling, punctuation or sound alike errors Admit orders completed 05/30/22 15:15 05/30/22 17:14 Blood Culture(s) Obtained: No Antibiotics given: No Discussed with Dr.: Other (Spoke to Dr. Dylon Samano with regard to the discrepancy between regional CTA chest in our CTA chest report. Dr. Samano feels that there report was erroneous likely an error) Counseled pt/family regarding: lab results, diagnosis, need for follow-up, rad results - Departure Departure Disposition: Observation Clinical Impression: Chest pain, Exophytic right renal cyst, Exophytic left renal cyst, Hypokalemia, ACS (acute coronary syndrome), Tachycardia Condition: Stable Critical Care Time: No Referrals: DOCTOR,NO FAMILY [Primary Care Provider] - Follow up/PCP as directed
[2022-05-30 13:47] LABS: Absolute Neutrophil Ct (ANC) 3.71 x10^3/uL (1.4-6.9); BASOPHIL % 0.5 % (0.0-0.4); Basophil (Absolute #) 0.03 x10^3/uL (0-0.4); Eosinophil % 0.8 % (0.00-5.0); Eosinophil (Absolute #) 0.05 x10^3/uL (0-0.5); Hematocrit 43.7 % (42-50); Hemoglobin 14.3 g/dL (12.5-18.0); IMMATURE GRAN # 0.02 x10^3u/L (0.00-0.03); IMMATURE GRAN % 0.3 % (0.00-0.4); Lymphocyte (Absolute #) 1.77 x10^3/uL (1.0-4.6); Lymphocytes % 29.5 % (24.0-44.0); Mean Cell Volume 90.1 fL (78-100); Mean Corpuscular Hemoglobin 29.5 pg (26-32); Mean Corpuscular Hgb Concent. 32.7 g/dL (32-36); Mean Platelet Volume 8.8 fL (7.5-11.0); Monocyte (Absolute #) 0.43 x10^3/uL (0.0-1.3); Monocytes % 7.2 % (0.0-12.0); Neutrophil % 61.7 % (36.0-66.0); Platelet Count 234 x10^3/uL (150-450); Red Blood Count 4.85 x10^6/uL (4.1-5.6); Red Cell Distribution Width 13.2 % (11.5-14.0)
[2022-05-30 14:13] LABS: ALBUMIN 4.9 g/dL (3.5-5.0); ALKALINE PHOSPHATASE 86 U/L (38-126); ANION GAP 12.4 MEQ/L (5-15); BLOOD UREA NITROGEN 12 mg/dL (9-20); CHLORIDE 103 mmol/L (98-107); Calcium 9.3 mg/dL (8.4-10.2); Carbon Dioxide 24 mmol/L (22-30); Creatinine 1 0.84 mg/dL (0.66-1.25); EST GLOMERULAR FILTRATION RATE > 60.0 ML/MIN; Glucose 114 mg/dL (74-106); NT PRO BNP < 11.5 pg/mL (0-450); Potassium 3.4 mmol/L (3.5-5.1); SGOT/AST 34 U/L (17-59); SGPT/ALT 95 U/L (0-50); SODIUM 136 mmol/L (137-145); Total Protein 8.3 g/dL (6.3-8.2)
--- NOTE | 2022-05-30 14:32 | XRAY ---
Indication: Chest pain. Aortic dissection. Conventional contrast enhanced CTA chest performed using 100 cc Isovue 370 contrast. 2-D sagittal and coronal reformatted images obtained. Additional 3-D reformatted images obtained using separate workstation. Comparison: None Aorta is normal in course and caliber without aneurysm/dissection. Heart not enlarged. No pathologic mediastinal/hilar lymphadenopathy. Lungs demonstrates minimal bibasilar dependent atelectasis. No suspicious pulmonary mass/nodule, infiltrate, effusion, or pneumothorax. Bony thorax intact. CTA abdomen/pelvis reported separately. Impression: Normal CTA chest with contrast exam.
[2022-05-30] MEDS ORDERED: MORPHINE SULFATE 4 MG INJ IV ONE ×2 (14:35→17:10)
[2022-05-30] MEDS ORDERED: Zofran 4 MG/2 ML VIAL IV ONE (14:35)
--- NOTE | 2022-05-30 14:36 | XRAY ---
Indication: Chest pain. Aortic dissection. Conventional contrast enhanced CTA abdomen/pelvis performed using 100 cc Isovue 370 contrast. 2-D sagittal and coronal reformatted images obtained. Additional 3-D reformatted images obtained using separate workstation. Comparison: CT chest without contrast exam October 10, 2020. CTA chest reported separately. Abdominal aorta is normal in course and caliber without aneurysm/dissection or arteriosclerotic disease. Normal patent branching celiac, superior mesenteric, and inferior mesenteric arteries. A single patent renal artery supplies each kidney. Iliac vessels are also normal in CTA appearance bilaterally. 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 Noncontrasted stomach and bowel loops appear nonobstructed with normal appendix. Again cholecystectomy. No free fluid/air. Stable 1.4 cm right renal exophytic cyst. New 7 mm left mid renal exophytic cyst. Remaining liver, pancreas, spleen, adrenal glands, kidneys, ureters, bladder, and aorta are normal in CT appearance and attenuation. No pathologic retroperitoneal lymphadenopathy. Osseous structures intact. No ventral or inguinal hernias. Impression: 1. Normal CTA abdomen/pelvis with contrast exam. 2. Incidental bilateral renal cysts and anatomic variant left-sided IVC.
[2022-05-30] MEDS ORDERED: Zofran 4 MG/2 ML VIAL ONE (14:41)
[2022-05-30] MEDS ORDERED: MORPHINE SULFATE 4 MG INJ ONE ×2 (14:41→17:13)
[2022-05-30] MEDS ORDERED: Klor Con PO ONE ×2 (16:58→17:05)
[2022-05-30 17:04] LABS: INFLUENZA A NEGATIVE (NEGATIVE); INFLUENZA B NEGATIVE (NEGATIVE); RESPIRATORY SYNCTIAL VIRUS NEGATIVE (Negative); SARS-CoV-2 Xpert Express NEGATIVE (NEGATIVE)
[2022-05-30] MEDS ORDERED: NITRO-BID 2% UD PACKETS ONE (17:12)
[2022-05-30] MEDS ORDERED: NITRO-BID 2% UD PACKETS TOP ONE ×2 (17:13→17:27)
[2022-05-30] MEDS ORDERED: MAALOX ES 30 ML UNIT DOSE PO PRN (17:27)
[2022-05-30] MEDS ORDERED: MILK OF MAGNESIA 30 ML PO PRN (17:27)
[2022-05-30] MEDS ORDERED: Senokot-S Tablet PO PRN (17:27)
[2022-05-30] MEDS ORDERED: TYLENOL 325 MG PO PRN (17:27)
[2022-05-30] MEDS ORDERED: Zofran 4 MG/2 ML VIAL IV PRN (17:27)
[2022-05-30 18:57] LABS: Barbiturate,Urine NEGATIVE (NEGATIVE); Benzodiazepine,Urine NEGATIVE (NEGATIVE); Cocaine,Urine NEGATIVE (NEGATIVE); Methadone,Urine NEGATIVE (NEGATIVE); Opiate,Urine POSITIVE (NEGATIVE); PCP,Urine NEGATIVE (NEGATIVE); THC,Urine POSITIVE (NEGATIVE)
[2022-05-30 20:20] LABS: Amphetamine,Urine NEGATIVE (NEGATIVE)
[2022-05-30] MEDS ORDERED: Desyrel 150 MG ONE (21:34)
[2022-05-30] MEDS ORDERED: NEURONTIN ONE (21:34)
[2022-05-30] MEDS: Cardizem 30 MG PO SCH (21:56)
[2022-05-30] MEDS: NORCO 7.5/325 MG TAB PO SCH (21:58)
[2022-05-30] MEDS: Neurontin PO SCH (21:58)
[2022-05-30] MEDS: Zanaflex 4 MG PO SCH (21:59)
[2022-05-30] MEDS: Oxy-IR 5 MG PO PRN (22:00)
[2022-05-30] MEDS: Lopressor 25MG Tab PO SCH (22:00)
[2022-05-30] MEDS ORDERED: DESYREL 50 MG PO SCH (22:00)
[2022-05-30] MEDS ORDERED: ZOCOR 20MG PO SCH (22:00)
[2022-05-30] MEDS ORDERED: Carafate 1 GM PO SCH (22:00)
[2022-05-30] MEDS ORDERED: Desyrel 150 MG PO SCH (22:00)
[2022-05-31 07:19] VITALS: O2SAT 94
[2022-05-31] MEDS: Carafate 1 GM PO SCH ×2 (08:41→12:48)
[2022-05-31] MEDS: Cardizem 30 MG PO SCH (09:43)
[2022-05-31] MEDS: Neurontin PO SCH ×2 (09:43→14:28)
[2022-05-31] MEDS: NORCO 7.5/325 MG TAB PO SCH ×3 (09:43→15:07)
[2022-05-31] MEDS: Zanaflex 4 MG PO SCH ×2 (09:43→14:28)
[2022-05-31] MEDS: Lopressor 25MG Tab PO SCH (09:43)
[2022-05-31] MEDS: Oxy-IR 5 MG PO PRN (09:46)
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
[2022-05-31 11:31] VITALS: BP 124/94; PULSE 83
[2022-05-31] MEDS ORDERED: Zocor 10MG PO SCH (22:00)
== END 2022-05-31 16:01 | disposition home or self-care (01) ==
LOC: ED 13:05 → MED SURG 17:22
PROVIDERS: ADMIT Family Medicine; ATTEND Family Medicine
DX: R07.9 Chest pain, unspecified (principal); I11.0 Hypertensive heart disease with heart failure; I50.9 Heart failure, unspecified; E78.5 Hyperlipidemia, unspecified; K51.90 Ulcerative colitis, unspecified, without complications; M54.50 Low back pain, unspecified; E87.6 Hypokalemia; I25.2 Old myocardial infarction; Z79.899 Other long term (current) drug therapy; Z20.828 Contact with and (suspected) exposure to other viral communicable diseases
CPT/HCPCS: 0241U; 36000; 36415; 71275; 74174; 80053; 80061; 80307; 83721; 83735; 83880; 84132; 84484; 85025; 93005; 93041; 93306; 94760; 96374; 96375; 96376; 99285; 93268; J2270; J2405; A9270-GY; G0378

== ENCOUNTER 2022-07-13 14:17 | Observation (INO) | payer OTHER ==
[2022-07-13] MEDS ORDERED: Sodium Chloride 0.9% 1000 ML 1,000 ML IV STA (14:20)
--- NOTE | 2022-07-13 14:20 | ERPHSYRPT ---
- History of Present Illness Time Seen by Provider: 07/13/22 14:20 Historian: patient Exam Limitations: no limitations Physician History: This is a 41-year-old white male patient of Dr. Eleuterio Arzate who states that for the last 6 weeks he has had intermittent episodes of shortness of breath and chest pain. He describes this as substernal and central without radiation. It is sharp. However, today the pain was more intense and has been constant. He has had associated shortness of breath for the last week. He also has had night sweats and 10 pound weight loss over the last 4 weeks. The weight loss is unintentional. According to Dr. Eleuterio Arzate who provided additional history on this patient, the patient has a cardiac ejection fraction of 35%. In add ition, there was a CT of the chest performed which showed adenopathy. Patient has been complaining of the night sweats as stated above. 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 The patient also is a former smoker. He has a history of hyperlipidemia and hypertension. Timing/Duration: today, week(s) (Symptoms for 6 weeks but today constant and more intense), worse Quality: sharpness Location: substernal, central Chest Pain Radiation: no radiation Severity of Pain-Max: moderate Severity of Pain-Current: moderate Associated Symptoms: other (Night sweats) Prior Chest Pain/Cardiac Workup: no prior chest pain, echocardiography (?) Nitro Today/Relief: no nitro taken today Aspirin Treatment Today: no aspirin today Allergies/Adverse Reactions: metronidazole [From Flagyl] Allergy (Verified 07/13/22 14:17) NSAIDS (Non-Steroidal Anti-Inflamma Adverse Reaction (Verified 07/13/22 14:17) Home Medications: Oxycodone HCl 5 mg Ir [Oxy-IR 5 MG] 15 mg PO BID 05/31/22 [History] Hx Tetanus, Diphtheria Vaccination/Date Given: Yes Hx Influenza Vaccination/Date Given: Yes (January 2022) Hx Pneumococcal Vaccination/Date Given: No Travel Risk - International Travel Have you traveled outside of the country in past 3 weeks: No - Coronavirus Screening Are you exhibiting any of the following symptoms?: No Close contact with a COVID-19 positive Pt in past 14-21 Days: No - Vaccine Status Have you recieved a Covid-19 vaccination: Yes 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: [employer] - Vaccination Dates Date of 2cond Vaccination (if applicable): UNKNOWN Dates if Unknown: UNKNOWN Comment: STATES HE HAS RECEIVED 2 BOOSTERS BUT UNSURE OF DATES - Review of Systems Constitutional: Night Sweats, Weight Loss (10 pounds over the last 4 weeks that is unintentional) Eyes: No Symptoms Ears, Nose, & Throat: No Symptoms Respiratory: No Symptoms Cardiac: Chest Pain Abdominal/Gastrointestinal: No Symptoms Genitourinary Symptoms: No Symptoms Musculoskeletal: No Symptoms Skin: No Symptoms Neurological: No Symptoms Psychological: No Symptoms Endocrine: Excessive Sweating (Patient states at times he is just drenched with sweat) Hematologic/Lymphatic: No Symptoms Immunological/Allergic: No Symptoms All Other Systems: Reviewed and Negative - Past Medical History Pertinent Past Medical History: Yes Neurological History: No Pertinent History ENT History: No Pertinent History Cardiac History: High Cholesterol, Hypertension Respiratory History: CHF Endocrine Medical History: No Pertinent History Musculoskeletal History: No Pertinent History GI Medical History: Gallbladder Disease, Other History: No Pertinent History Psycho-Social History: No Pertinent History Male Reproductive Disorders: No Pertinent History Other Medical History: Assending aoritc anuerysm, ulcerative colitis - Past Surgical History Past Surgical History: Yes Neuro Surgical History: No Pertinent History Cardiac: No Pertinent History Respiratory: No Pertinent History Gastrointestinal: Cholecystectomy Genitourinary: No Pertinent History Musculoskeletal: No Pertinent History Male Surgical History: No Pertinent History Other Surgical History: 2 skin grafts, hemmroidectomy, anal spincterotomy 2018 - Social History Smoking Status: Former smoker Exposure to second hand smoke: No Drug Use: marijuana Patient Lives Alone: Yes - Nursing Vital Signs Nursing Vital Signs: Initial Vital Signs Temperature 97.2 F 07/13/22 14:27 Pulse Rate 75 07/13/22 14:27 Respiratory Rate 18 07/13/22 14:27 Blood Pressure 139/102 07/13/22 14:27 O2 Sat by Pulse Oximetry 98 07/13/22 14:27 Pain Scale Pain Intensity 5 - Physical Exam General Appearance: no apparent distress, alert, anxiety Eye Exam: PERRL/EOMI, eyes nml inspection Ears, Nose, Throat Exam: normal ENT inspection, moist mucous membranes Neck Exam: normal inspection, non-tender, supple, full range of motion Respiratory Exam: normal breath sounds, chest tenderness, lungs clear, No respiratory distress, No airway intact Cardiovascular Exam: regular rate/rhythm, normal heart sounds, normal peripheral pulses Gastrointestinal/Abdomen Exam: soft, normal bowel sounds, No tenderness Rectal Exam: not done Back Exam: normal inspection, normal range of motion, No CVA tenderness, No vertebral tenderness Extremity Exam: normal inspection, normal range of motion, pelvis stable Neurologic Exam: alert, oriented x 3, cooperative, 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, normal mood/affect, nml cerebellar function, nml station & gait, sensation nml Skin Exam: normal color, warm, dry Lymphatic Exam: No adenopathy SpO2 Interpretation: normal O2 Delivery: Room Air - Course Nursing assessment & vital signs reviewed: Yes EKG Interpreted by Me: RATE (73), Sinus Rhythm, LAFB, NORMAL INTERVALS, NORMAL QRS, Other (No acute ischemic changes on today's twelve-lead EKG.) Ordered Tests: Active Orders 24 hr Category Date Time Status EKG-ER Only STAT Care 07/13/22 14:20 Active IV Insertion STAT Care 07/13/22 14:20 Active Pulse Oximetry (ED) STAT Care 07/13/22 14:20 Active CHEST WITH CONTRAST [CT] Stat Exams 07/13/22 14:20 Completed BLOOD CULTURE Stat Lab 07/13/22 14:35 Received CBC W DIFF Stat Lab 07/13/22 14:35 Completed CMP Stat Lab 07/13/22 14:35 Completed PROTIME WITH INR Stat Lab 07/13/22 14:35 Completed TROPONIN Q4H Lab 07/13/22 14:35 Completed TROPONIN Q4H Lab 07/13/22 18:30 Ordered TROPONIN Q4H Lab 07/13/22 22:30 Ordered Transfer Order Routine Transfer 07/13/22 Ordered Medication Summary Discontinued Medications Generic Name Dose Route Start Last Admin Trade Name Freq PRN Reason Stop Dose Admin Hydromorphone HCl 1 mg 07/13/22 16:36 07/13/22 16:46 Hydromorphone 1 Mg/1ml Inj 1 Mg/Ml Syringe IV 07/13/22 16:37 1 mg STAT ONE Administration Hydromorphone HCl Confirm 07/13/22 16:45 Hydromorphone 1 Mg/1ml Inj 1 Mg/Ml Syringe Administered 07/13/22 16:46 Dose 1 mg .ROUTE .STK-MED ONE Sodium Chloride 1,000 mls @ 999 mls/hr 07/13/22 14:20 07/13/22 16:08 Sodium Chloride 0.9% 1000 Ml IV 07/13/22 15:20 Infused .Q1H1M STA Infusion Sodium Chloride Confirm 07/13/22 15:00 Sodium Chloride 0.9% 1000 Ml Administered 07/13/22 15:01 Dose 1,000 mls @ ud .ROUTE .STK-MED ONE Ondansetron HCl 4 mg 07/13/22 16:36 07/13/22 16:46 Ondansetron Hcl 4 Mg/2 Ml Vial IV 07/13/22 16:37 4 mg STAT ONE Administration Ondansetron HCl Confirm 07/13/22 16:45 Ondansetron Hcl 4 Mg/2 Ml Vial Administered 07/13/22 16:46 Dose 4 mg .ROUTE .STK-MED ONE Lab/Rad Data: Laboratory Result Diagrams 07/13/22 14:35 07/13/22 14:35 Laboratory Results 07/13/22 07/13/22 07/13/22 Range/Units 14:35 14:35 14:35 WBC (4.0-10.5) x10^3/uL RBC (4.1-5.6) x10^6/uL Hgb (12.5-18.0) g/dL Hct (42-50) % MCV (78-100) fL MCH (26-32) pg MCHC (32-36) g/dL RDW (11.5-14.0) % Plt Count (150-450) x10^3/uL MPV (7.5-11.0) fL Gran % (36.0-66.0) % Immature Gran % (Auto) (0.00-0.4) % Nucleat RBC Rel Count (0.00-0.1) % Eos # (Auto) (0-0.5) x10^3/uL Immature Gran # (Auto) (0.00-0.03) x10^3u/L Absolute Lymphs (auto) (1.0-4.6) x10^3/uL Absolute Monos (auto) (0.0-1.3) x10^3/uL Absolute Nucleated RBC (0.00-0.01) x10^3u/L Lymphocytes % (24.0-44.0) % Monocytes % (0.0-12.0) % Eosinophils % (0.00-5.0) % Basophils % (0.0-0.4) % Absolute Granulocytes (1.4-6.9) x10^3/uL Basophils # (0-0.4) x10^3/uL PT 10.3 (9.4-12.5) SECONDS INR 0.94 (0.8-3.0) Sodium (137-145) mmol/L Potassium (3.5-5.1) mmol/L Chloride (98-107) mmol/L Carbon Dioxide (22-30) mmol/L Anion Gap (5-15) MEQ/L BUN (9-20) mg/dL Creatinine (0.66-1.25) mg/dL Estimated GFR ML/MIN Glucose (74-106) mg/dL Calcium (8.4-10.2) mg/dL Total Bilirubin (0.2-1.3) mg/dL AST (17-59) U/L ALT (0-50) U/L Alkaline Phosphatase (38-126) U/L Troponin I < 0.012 (0.000-0.034) ng/mL Serum Total Protein (6.3-8.2) g/dL Albumin (3.5-5.0) g/dL Influenza Type A Ag NEGATIVE (NEGATIVE) Influenza Type B Ag NEGATIVE (NEGATIVE) RSV (PCR) NEGATIVE (Negative) SARS-CoV-2 (PCR) NEGATIVE (NEGATIVE) 07/13/22 07/13/22 Range/Units 14:35 14:35 WBC 5.7 (4.0-10.5) x10^3/uL RBC 4.55 (4.1-5.6) x10^6/uL Hgb 13.4 (12.5-18.0) g/dL Hct 40.7 L (42-50) % MCV 89.5 (78-100) fL MCH 29.5 (26-32) pg MCHC 32.9 (32-36) g/dL RDW 12.6 (11.5-14.0) % Plt Count 248 (150-450) x10^3/uL MPV 8.9 (7.5-11.0) fL Gran % 59.2 (36.0-66.0) % Immature Gran % (Auto) 0.2 (0.00-0.4) % Nucleat RBC Rel Count 0.0 (0.00-0.1) % Eos # (Auto) 0.06 (0-0.5) x10^3/uL Immature Gran # (Auto) 0.01 (0.00-0.03) x10^3u/L Absolute Lymphs (auto) 1.85 (1.0-4.6) x10^3/uL Absolute Monos (auto) 0.37 (0.0-1.3) x10^3/uL Absolute Nucleated RBC 0.00 (0.00-0.01) x10^3u/L Lymphocytes % 32.5 (24.0-44.0) % Monocytes % 6.5 (0.0-12.0) % Eosinophils % 1.1 (0.00-5.0) % Basophils % 0.5 (0.0-0.4) % Absolute Granulocytes 3.37 (1.4-6.9) x10^3/uL Basophils # 0.03 (0-0.4) x10^3/uL PT (9.4-12.5) SECONDS INR (0.8-3.0) Sodium 138 (137-145) mmol/L Potassium 4.1 (3.5-5.1) mmol/L Chloride 102 (98-107) mmol/L Carbon Dioxide 28 (22-30) mmol/L Anion Gap 11.8 (5-15) MEQ/L BUN 10 (9-20) mg/dL Creatinine 0.64 L (0.66-1.25) mg/dL Estimated GFR > 60.0 ML/MIN Glucose 86 (74-106) mg/dL Calcium 9.3 (8.4-10.2) mg/dL Total Bilirubin 0.90 (0.2-1.3) mg/dL AST 47 (17-59) U/L ALT 75 H (0-50) U/L Alkaline Phosphatase 58 (38-126) U/L Troponin I (0.000-0.034) ng/mL Serum Total Protein 7.7 (6.3-8.2) g/dL Albumin 4.6 (3.5-5.0) g/dL Influenza Type A Ag (NEGATIVE) Influenza Type B Ag (NEGATIVE) RSV (PCR) (Negative) SARS-CoV-2 (PCR) (NEGATIVE) - Progress Progress: improved, re-examined Air Movement: good Progress Note: 07/13/22 16:49 This patient's medical history is of high complexity. This level of complexity and work-up level was based on past medical history, review of the patient's medication list, review of the patient's medical allergy list, history of present illness and physical exam findings. The work-up includes placement of an intravenous line, infusion of intravenous fluids, blood cultures, CBC, CMP, troponin, BNP, CTA of the chest. The IV line placed was functioning but the patient complained of pain so it was removed and we replaced IV fluids. We provided the patient with intravenous Dilaudid and Zofran. I reviewed the results of the work-up. I discussed the results with the patient and with Dr. Eleuterio Arzate. Together, we formulated a plan to admit the patient into the hospital for chest pain rule out, weight loss and night sweats. Blood Culture(s) Obtained: Yes Antibiotics given: No Counseled pt/family regarding: lab results, diagnosis, rad results Medical Desision Making - External Record(s) Reviewed Records reviewed as a part of evaluation & management: Clinic (Outpatient records and patient's clinic/primary care physician provided additional history) - Discussion of managment Care discussed with:: PCP Reviewed:: Test results, Need for additional workup Agreed on:: Treatment plan, need for follow-up, decision to admit Will see patient: in hospital - Diagnostic Testing Diagnostic test were ordered, analyzed, and reviewed by me: Yes Radiological Interpretation: Reviewed by me, Teleradiologist Report - Risk of complications The pt has a high risk of morbidity or mortality based on: Decision regarding hospitilization or escalation of hosp level of care - Departure Departure Disposition: In-patient Admission Clinical Impression: Chest pain, rule out acute myocardial infarction, Night sweats, Weight loss, unintentional Condition: Stable Critical Care Time: No Referrals: DOCTOR,NO FAMILY [Primary Care Provider] - Follow up/PCP as directed
[2022-07-13 14:41] LABS: Absolute Neutrophil Ct (ANC) 3.37 x10^3/uL (1.4-6.9); BASOPHIL % 0.5 % (0.0-0.4); Basophil (Absolute #) 0.03 x10^3/uL (0-0.4); Eosinophil % 1.1 % (0.00-5.0); Eosinophil (Absolute #) 0.06 x10^3/uL (0-0.5); Hematocrit 40.7 % (42-50); Hemoglobin 13.4 g/dL (12.5-18.0); IMMATURE GRAN # 0.01 x10^3u/L (0.00-0.03); IMMATURE GRAN % 0.2 % (0.00-0.4); Lymphocyte (Absolute #) 1.85 x10^3/uL (1.0-4.6); Lymphocytes % 32.5 % (24.0-44.0); Mean Cell Volume 89.5 fL (78-100); Mean Corpuscular Hemoglobin 29.5 pg (26-32); Mean Corpuscular Hgb Concent. 32.9 g/dL (32-36); Mean Platelet Volume 8.9 fL (7.5-11.0); Monocyte (Absolute #) 0.37 x10^3/uL (0.0-1.3); Monocytes % 6.5 % (0.0-12.0); Neutrophil % 59.2 % (36.0-66.0); Platelet Count 248 x10^3/uL (150-450); Red Blood Count 4.55 x10^6/uL (4.1-5.6); Red Cell Distribution Width 12.6 % (11.5-14.0); White Blood Count 5.7 x10^3/uL (4.0-10.5)
[2022-07-13 14:55] LABS: ALBUMIN 4.6 g/dL (3.5-5.0); ALKALINE PHOSPHATASE 58 U/L (38-126); ANION GAP 11.8 MEQ/L (5-15); BLOOD UREA NITROGEN 10 mg/dL (9-20); CHLORIDE 102 mmol/L (98-107); Calcium 9.3 mg/dL (8.4-10.2); Carbon Dioxide 28 mmol/L (22-30); Creatinine 1 0.64 mg/dL (0.66-1.25); EST GLOMERULAR FILTRATION RATE > 60.0 ML/MIN; Glucose 86 mg/dL (74-106); INR 0.94 (0.8-3.0); PROTIME 10.3 SECONDS (9.4-12.5); Potassium 4.1 mmol/L (3.5-5.1); SGOT/AST 47 U/L (17-59); SGPT/ALT 75 U/L (0-50); SODIUM 138 mmol/L (137-145); Total Protein 7.7 g/dL (6.3-8.2)
[2022-07-13] MEDS ORDERED: Sodium Chloride 0.9% 1000 ML 1,000 ML ONE (15:00)
[2022-07-13 15:17] LABS: INFLUENZA A NEGATIVE (NEGATIVE); INFLUENZA B NEGATIVE (NEGATIVE); RESPIRATORY SYNCTIAL VIRUS NEGATIVE (Negative); SARS-CoV-2 Xpert Express NEGATIVE (NEGATIVE)
--- NOTE | 2022-07-13 15:26 | XRAY ---
Indication: Chest pain 6 weeks. Multiple contiguous axial images obtained through the chest using 100cc Isovue 370 contrast and PE protocol. Comparison: May 30, 2022 Good opacification of the pulmonary arteries to include the lobar and segmental branches. No pulmonary embolus. Heart not enlarged. Aorta is normal in course and caliber. Lungs inflated and remain clear. Bony thorax intact. Limited upper abdomen unremarkable. Impression: Continued normal CT PE exam compared to CTA chest/abdomen/pelvis May 30, 2022.
[2022-07-13] MEDS ORDERED: Hydromorphone 1 mg/ml Injection IV ONE (16:36)
[2022-07-13] MEDS ORDERED: Zofran 4 MG/2 ML VIAL IV ONE (16:36)
[2022-07-13] MEDS ORDERED: Zofran 4 MG/2 ML VIAL ONE (16:45)
[2022-07-13] MEDS ORDERED: Hydromorphone 1 mg/ml Injection ONE (16:45)
[2022-07-13] MEDS ORDERED: MORPHINE SULFATE 4 MG INJ IV PRN (17:35)
[2022-07-13] MEDS ORDERED: Zofran 4 MG/2 ML VIAL IV PRN (17:35)
[2022-07-13] MEDS ORDERED: TYLENOL 325 MG PO PRN (17:35)
[2022-07-13] MEDS ORDERED: Sodium Chloride 0.9% 1000 ML 1,000 ML IV SCH (17:35)
[2022-07-13] MEDS ORDERED: Nitrostat 0.4 MG Tablet SL PRN (17:54)
[2022-07-13] MEDS ORDERED: Nicoderm CQ 21 MG TOP SCH (18:30)
[2022-07-13] MEDS: Lopressor 25MG Tab PO SCH (20:52)
[2022-07-13] MEDS: Oxy-IR 5 MG PO SCH ×2 (20:52→20:55)
[2022-07-13] MEDS: Zanaflex 4 MG PO SCH (20:54)
[2022-07-13] MEDS: Carafate 1 GM PO SCH (20:56)
[2022-07-13] MEDS ORDERED: ZOCOR 20MG PO SCH (22:00)
[2022-07-13] MEDS ORDERED: Desyrel 150 MG PO SCH (22:00)
[2022-07-13] MEDS: NORCO 7.5/325 MG TAB PO SCH (22:00)
[2022-07-14 05:07] LABS: Absolute Neutrophil Ct (ANC) 2.51 x10^3/uL (1.4-6.9); BASOPHIL % 0.6 % (0.0-0.4); Basophil (Absolute #) 0.03 x10^3/uL (0-0.4); Eosinophil % 1.5 % (0.00-5.0); Eosinophil (Absolute #) 0.07 x10^3/uL (0-0.5); Hematocrit 39.8 % (42-50); Hemoglobin 13.3 g/dL (12.5-18.0); IMMATURE GRAN # 0.01 x10^3u/L (0.00-0.03); IMMATURE GRAN % 0.2 % (0.00-0.4); Lymphocyte (Absolute #) 1.78 x10^3/uL (1.0-4.6); Lymphocytes % 37.7 % (24.0-44.0); Mean Cell Volume 90.2 fL (78-100); Mean Corpuscular Hemoglobin 30.2 pg (26-32); Mean Corpuscular Hgb Concent. 33.4 g/dL (32-36); Mean Platelet Volume 8.6 fL (7.5-11.0); Monocyte (Absolute #) 0.32 x10^3/uL (0.0-1.3); Monocytes % 6.8 % (0.0-12.0); Neutrophil % 53.2 % (36.0-66.0); Platelet Count 224 x10^3/uL (150-450); Red Blood Count 4.41 x10^6/uL (4.1-5.6); Red Cell Distribution Width 12.9 % (11.5-14.0); White Blood Count 4.7 x10^3/uL (4.0-10.5)
[2022-07-14 05:31] LABS: ALBUMIN 4.2 g/dL (3.5-5.0); ALKALINE PHOSPHATASE 60 U/L (38-126); ANION GAP 9.5 MEQ/L (5-15); BLOOD UREA NITROGEN 10 mg/dL (9-20); CHLORIDE 102 mmol/L (98-107); Calcium 8.9 mg/dL (8.4-10.2); Carbon Dioxide 31 mmol/L (22-30); Creatinine 1 0.76 mg/dL (0.66-1.25); EST GLOMERULAR FILTRATION RATE > 60.0 ML/MIN; Glucose 89 mg/dL (74-106); NT PRO BNPII < 20.0 pg/mL (<300); Potassium 3.9 mmol/L (3.5-5.1); SGOT/AST 38 U/L (17-59); SGPT/ALT 65 U/L (0-50); SODIUM 139 mmol/L (137-145); Total Protein 7.2 g/dL (6.3-8.2)
[2022-07-14] MEDS: Oxy-IR 5 MG PO SCH (07:51)
[2022-07-14] MEDS ORDERED: XYLOCAINE 4% TOPICAL SOLUTION 50 ML MM PRN (07:59)
[2022-07-14] MEDS ORDERED: XYLOCAINE 4% TOPICAL SOLUTION 50 ML MM SCH (08:00)
[2022-07-14] MEDS: Lopressor 25MG Tab PO SCH (08:43)
[2022-07-14] MEDS: Carafate 1 GM PO SCH (08:44)
[2022-07-14] MEDS: Zanaflex 4 MG PO SCH (08:44)
[2022-07-14] MEDS: NORCO 7.5/325 MG TAB PO SCH (08:45)
[2022-07-14] MEDS ORDERED: NON-FORMULARY ITEM (Lisinopril [Zestril] 30 MG Tablet) PO SCH (10:00)
[2022-07-14] MEDS ORDERED: Cardizem 30 MG PO SCH (10:00)
[2022-07-14] MEDS ORDERED: Zestril 10 MG PO SCH (10:00)
--- NOTE | 2022-07-14 11:15 | PCM.HP.ADD ---
Addendum to History & Physical - History & Physical Addendum Addendum to History & Physical: This certifies that the History & Physical in the electronic chart reflects the current health status of the patient. If there are changes in the H&P these changes/exceptions are listed as follows.
--- NOTE | 2022-07-14 11:28 | PCM.DS ---
Discharge Summary Date of Admission: 07/13/22 17:33 Admitting Physician: JACK FAUSTIN Primary Care Provider: NO FAMILY DOCTOR Allergies Allergies metronidazole [From Flagyl] Allergy (Verified 07/13/22 17:44) NSAIDS (Non-Steroidal Anti-Inflamma Adverse Reaction (Verified 07/13/22 17:44) Hospital Summary - Hospital Course Hospital Course: Pt is a 41 yo male pt of mine (since May 2022) with chronic back pain, ulcerative colitis, HFrEF, and hyperglycemia who was admitted through ER after having been seen by me in office. He had chest pain, also c/o 6 weeks of weight loss, fatigue, and some lymphadenopathy seen on outside scans. He had been seen at multiple other facilities (for details, see my office note). WBC nl, no anemia. K+ 3.9, eGFR > 60. His ALT is 65 this morning, was 75 on admission (AST nl at 38 and 47, AP nl at 60 and 58). BNP nl (<20). Pt's troponins have been neg x 3. CT chest with IV contrast neg for PE or acute process. He has had some intermittent chest pain since admission. He is focused on the fact that his pain meds are not being prescribed at the level they were prescribed prior to September 2021. He is being referred to hematology/oncology for question of adenopathy (his CT chest didn't show any here yesterday) and to pain management again (was referred from our office). He has actually just been dismissed from our practice due to several negative interactions he had with staff. I discussed this with him this morning. He will, of course, be scheduled to f/u with me in 1 week. - Vitals & Intake/Output Vital Signs: Vital Signs Temperature 97.5 F 07/14/22 07:41 Pulse Rate 84 07/14/22 07:41 Respiratory Rate 16 07/14/22 07:41 Blood Pressure 132/97 07/14/22 07:41 O2 Sat by Pulse Oximetry 98 07/14/22 07:41 Intake & Output: Intake & Output 07/11/22 07/12/22 07/13/22 07/14/22 11:59 11:59 11:59 11:59 Intake Total 1836 Output Total 1100 Balance 736 Weight 99.3 kg - Lab Result Diagrams: 07/14/22 05:05 03/10/23 05:05 Lab Results-Last 24 Hrs: Lab Results-Last 24 Hours 07/13/22 07/13/22 07/13/22 Range/Units 14:35 14:35 14:35 WBC 5.7 (4.0-10.5) x10^3/uL RBC 4.55 (4.1-5.6) x10^6/uL Hgb 13.4 (12.5-18.0) g/dL Hct 40.7 L (42-50) % MCV 89.5 (78-100) fL MCH 29.5 (26-32) pg MCHC 32.9 (32-36) g/dL RDW 12.6 (11.5-14.0) % Plt Count 248 (150-450) x10^3/uL MPV 8.9 (7.5-11.0) fL Gran % 59.2 (36.0-66.0) % Immature Gran % (Auto) 0.2 (0.00-0.4) % Nucleat RBC Rel Count 0.0 (0.00-0.1) % Eos # (Auto) 0.06 (0-0.5) x10^3/uL Immature Gran # (Auto) 0.01 (0.00-0.03) x10^3u/L Absolute Lymphs (auto) 1.85 (1.0-4.6) x10^3/uL Absolute Monos (auto) 0.37 (0.0-1.3) x10^3/uL Absolute Nucleated RBC 0.00 (0.00-0.01) x10^3u/L Lymphocytes % 32.5 (24.0-44.0) % Monocytes % 6.5 (0.0-12.0) % Eosinophils % 1.1 (0.00-5.0) % Basophils % 0.5 (0.0-0.4) % Absolute Granulocytes 3.37 (1.4-6.9) x10^3/uL Basophils # 0.03 (0-0.4) x10^3/uL PT 10.3 (9.4-12.5) SECONDS INR 0.94 (0.8-3.0) Sodium 138 (137-145) mmol/L Potassium 4.1 (3.5-5.1) mmol/L Chloride 102 (98-107) mmol/L Carbon Dioxide 28 (22-30) mmol/L Anion Gap 11.8 (5-15) MEQ/L BUN 10 (9-20) mg/dL Creatinine 0.64 L (0.66-1.25) mg/dL Estimated GFR > 60.0 ML/MIN Glucose 86 (74-106) mg/dL Calcium 9.3 (8.4-10.2) mg/dL Total Bilirubin 0.90 (0.2-1.3) mg/dL AST 47 (17-59) U/L ALT 75 H (0-50) U/L Alkaline Phosphatase 58 (38-126) U/L Troponin I (0.000-0.034) ng/mL NT-Pro-B Natriuret Pep (<300) pg/mL Serum Total Protein 7.7 (6.3-8.2) g/dL Albumin 4.6 (3.5-5.0) g/dL Influenza Type A Ag (NEGATIVE) Influenza Type B Ag (NEGATIVE) RSV (PCR) (Negative) SARS-CoV-2 (PCR) (NEGATIVE) 07/13/22 07/13/22 07/13/22 Range/Units 14:35 14:35 18:15 WBC (4.0-10.5) x10^3/uL RBC (4.1-5.6) x10^6/uL Hgb (12.5-18.0) g/dL Hct (42-50) % MCV (78-100) fL MCH (26-32) pg MCHC (32-36) g/dL RDW (11.5-14.0) % Plt Count (150-450) x10^3/uL MPV (7.5-11.0) fL Gran % (36.0-66.0) % Immature Gran % (Auto) (0.00-0.4) % Nucleat RBC Rel Count (0.00-0.1) % Eos # (Auto) (0-0.5) x10^3/uL Immature Gran # (Auto) (0.00-0.03) x10^3u/L Absolute Lymphs (auto) (1.0-4.6) x10^3/uL Absolute Monos (auto) (0.0-1.3) x10^3/uL Absolute Nucleated RBC (0.00-0.01) x10^3u/L Lymphocytes % (24.0-44.0) % Monocytes % (0.0-12.0) % Eosinophils % (0.00-5.0) % Basophils % (0.0-0.4) % Absolute Granulocytes (1.4-6.9) x10^3/uL Basophils # (0-0.4) x10^3/uL PT (9.4-12.5) SECONDS INR (0.8-3.0) Sodium (137-145) mmol/L Potassium (3.5-5.1) mmol/L Chloride (98-107) mmol/L Carbon Dioxide (22-30) mmol/L Anion Gap (5-15) MEQ/L BUN (9-20) mg/dL Creatinine (0.66-1.25) mg/dL Estimated GFR ML/MIN Glucose (74-106) mg/dL Calcium (8.4-10.2) mg/dL Total Bilirubin (0.2-1.3) mg/dL AST (17-59) U/L ALT (0-50) U/L Alkaline Phosphatase (38-126) U/L Troponin I < 0.012 < 0.012 (0.000-0.034) ng/mL NT-Pro-B Natriuret Pep (<300) pg/mL Serum Total Protein (6.3-8.2) g/dL Albumin (3.5-5.0) g/dL Influenza Type A Ag NEGATIVE (NEGATIVE) Influenza Type B Ag NEGATIVE (NEGATIVE) RSV (PCR) NEGATIVE (Negative) SARS-CoV-2 (PCR) NEGATIVE (NEGATIVE) 07/13/22 07/14/22 07/14/22 Range/Units 22:20 05:05 05:05 WBC 4.7 (4.0-10.5) x10^3/uL RBC 4.41 (4.1-5.6) x10^6/uL Hgb 13.3 (12.5-18.0) g/dL Hct 39.8 L (42-50) % MCV 90.2 (78-100) fL MCH 30.2 (26-32) pg MCHC 33.4 (32-36) g/dL RDW 12.9 (11.5-14.0) % Plt Count 224 (150-450) x10^3/uL MPV 8.6 (7.5-11.0) fL Gran % 53.2 (36.0-66.0) % Immature Gran % (Auto) 0.2 (0.00-0.4) % Nucleat RBC Rel Count 0.0 (0.00-0.1) % Eos # (Auto) 0.07 (0-0.5) x10^3/uL Immature Gran # (Auto) 0.01 (0.00-0.03) x10^3u/L Absolute Lymphs (auto) 1.78 (1.0-4.6) x10^3/uL Absolute Monos (auto) 0.32 (0.0-1.3) x10^3/uL Absolute Nucleated RBC 0.00 (0.00-0.01) x10^3u/L Lymphocytes % 37.7 (24.0-44.0) % Monocytes % 6.8 (0.0-12.0) % Eosinophils % 1.5 (0.00-5.0) % Basophils % 0.6 (0.0-0.4) % Absolute Granulocytes 2.51 (1.4-6.9) x10^3/uL Basophils # 0.03 (0-0.4) x10^3/uL PT (9.4-12.5) SECONDS INR (0.8-3.0) Sodium 139 (137-145) mmol/L Potassium 3.9 (3.5-5.1) mmol/L Chloride 102 (98-107) mmol/L Carbon Dioxide 31 H (22-30) mmol/L Anion Gap 9.5 (5-15) MEQ/L BUN 10 (9-20) mg/dL Creatinine 0.76 (0.66-1.25) mg/dL Estimated GFR > 60.0 ML/MIN Glucose 89 (74-106) mg/dL Calcium 8.9 (8.4-10.2) mg/dL Total Bilirubin 0.80 (0.2-1.3) mg/dL AST 38 (17-59) U/L ALT 65 H (0-50) U/L Alkaline Phosphatase 60 (38-126) U/L Troponin I < 0.012 (0.000-0.034) ng/mL NT-Pro-B Natriuret Pep < 20.0 (<300) pg/mL Serum Total Protein 7.2 (6.3-8.2) g/dL Albumin 4.2 (3.5-5.0) g/dL Influenza Type A Ag (NEGATIVE) Influenza Type B Ag (NEGATIVE) RSV (PCR) (Negative) SARS-CoV-2 (PCR) (NEGATIVE) - Radiology Exams Ordered Rad Exams-Entire Visit: Radiology Procedures Category Date Time Status CHEST WITH CONTRAST [CT] Stat Exams 07/13/22 14:20 Completed ECHO W/2D AND DOPPLER [US] Routine Exams 07/14/22 08:00 Taken - Procedures and Test Procedures and Tests throughout Hospitalization: Therapy Orders & Screens 07/13/22 17:35 EKG REPEAT IN AM Comment: 07/14/22 08:19 STRESS TEST [Schedule Outpt Stress Test] ROUTINE Comment: regular treadmill Diagnosis: Chest pain rule out Schedule Outpt Stress Test: Regular Stress Test Cardiolite Stress Test: Regular Stress Test Discharge Exam General Appearance: no apparent distress, alert, other (pt is fully dressed) Neurologic Exam: oriented x 3, cooperative Eye Exam: eyes nml inspection Ears, Nose, Throat Exam: moist mucous membranes Neck Exam: normal inspection, non-tender, supple, No lymphadenopathy, No thyromegaly Respiratory Exam: normal breath sounds, lungs clear, No crackles/rales, No rhonchi, No wheezing Cardiovascular Exam: regular rate/rhythm, normal heart sounds, No murmur Extremity Exam: normal inspection, No pedal edema, No swelling Final Diagnosis/Problem List - Final Discharge Diagnosis/Problem (1) Chest pain, rule out acute myocardial infarction Current Visit: Yes Status: Ruled-out Assessment & Plan: Is scheduled for outpatient regular treadmill. He had seen Dr. Thierry Romano but states he will not be seeing him again. Code(s): R07.9 - CHEST PAIN, UNSPECIFIED (2) Lymphadenopathy Current Visit: Yes Status: Suspected Assessment & Plan: Not on current film, but will f/u with heme/onc. Code(s): R59.1 - GENERALIZED ENLARGED LYMPH NODES (3) Night sweats Current Visit: Yes Status: Acute Assessment & Plan: for the past 6 weeks. He had labs from outside hospital in office that showed neg for TB and HIV. Code(s): R61 - GENERALIZED HYPERHIDROSIS (4) Weight loss, unintentional Current Visit: Yes Status: Acute Assessment & Plan: x 6 wks, unknown etiology. Code(s): R63.4 - ABNORMAL WEIGHT LOSS (5) CHF (congestive heart failure) Current Visit: No Status: Chronic Assessment & Plan: per office visit pt had, EF 35% - rechecking echo with the worsening chest pain. Code(s): I50.9 - HEART FAILURE, UNSPECIFIED (6) Ulcerative colitis Current Visit: No Status: Chronic Assessment & Plan: per pt report. Code(s): K51.90 - ULCERATIVE COLITIS, UNSPECIFIED, WITHOUT COMPLICATIONS (7) Chronic low back pain Current Visit: No Status: Chronic Assessment & Plan: I will be sending pt with oxycodone ER 20mg po BID (escribed already), as pt feels his pain relief is inadequate. He prefers IR but I cannot continue to give 2 fast acting opioids (I had done this initially as it was a continuation of his previous regimen, per INSPECT, and he was supposed to be f/u with pain mgmt. I cannot, however, continue this). Pt is upset about it. Code(s): M54.50 - LOW BACK PAIN, UNSPECIFIED; G89.29 - OTHER CHRONIC PAIN - Discharge Disposition: Home, Self-Care Condition: Good Prescriptions: New Nicotine 21 mg [Nicoderm CQ 21 MG] 21 mg TOP Q24H 30 Days #30 patch Oxycodone HCl [Oxycodone HCl ER] 20 mg PO BID 30 Days #60 tablet MDD 2 Continue Hydrocodone/Acetaminophen [Hydrocodone-Acetamin 7.5-325] 1 each PO TID 7 Days #21 tablet MDD 3 lisinopriL [Zestril] 30 mg PO DAILY Trazodone HCl 150 mg PO HS Tizanidine HCl 4 mg [Zanaflex 4 MG] 4 mg PO TID Sucralfate 1 gm [Carafate 1 GM] 1 gm PO ACHS Metoprolol Tartrate 25 mg [Lopressor 25MG Tab] 25 tab PO BID Diltiazem HCl 30 mg [Cardizem 30 MG] 30 mg PO DAILY Atorvastatin Calcium [Lipitor] 40 tab PO HS Nitroglycerin 0.4 mg Tablet [Nitrostat 0.4 MG Tablet] 0.4 mg SL Q5MIN PRN MR X 3 PRN PRN Reason: Chest Pain lidocaine HCL [Lidocaine HCl] 1 applic MM UD Discontinued Oxycodone HCl 5 mg Ir [Oxy-IR 5 MG] 15 mg PO BID Outpatient Orders: Stress Test: Regular Time Frame: 07/17/22, Facility: [facility], Location: [facility]AP[facility] Instructions: Angina (DC), Oxycodone Additional Instructions: PAIN MANAGEMENT REFERRAL WAS SENT TO [facility]. THEY WILL REACH OUT TO YOU TO SCHEDULE AN APPOINTMENT. THEIR PHONE NUMBER IS [phone] Patient has an outpatient stress test at [facility] on 07/17/22 @ 09:30. NPO after midnight. No caffine for 12 hours prior, DO NOT TAKE YOUR METOPROLOL OR DILTALAZEM FOR 48 HOURS PRIOR TO YOUR STRESS TEST Follow up with: STEVAN LENTZ [CONSULTING PHYSICIAN] - (office will call patient with appt ) JACK FAUSTIN [ACTIVE STAFF] - 08/14/22 10:15 am Forms: Outpatient Follow-up Labs/Proc
[2022-07-14 12:06] VITALS: PULSE 62
[2022-07-14 13:51] VITALS: BP 136/96; O2SAT 96
== END 2022-07-14 13:50 | disposition home or self-care (01) ==
LOC: ED 14:17 → MED SURG 17:33 → INTOOBSV 17:33
PROVIDERS: ADMIT Family Medicine; ATTEND Family Medicine
DX: R07.9 Chest pain, unspecified (principal); R59.1 Generalized enlarged lymph nodes; R61 Generalized hyperhidrosis; R63.4 Abnormal weight loss; I11.0 Hypertensive heart disease with heart failure; I50.9 Heart failure, unspecified; K51.90 Ulcerative colitis, unspecified, without complications; M54.50 Low back pain, unspecified; R73.9 Hyperglycemia, unspecified; Z79.899 Other long term (current) drug therapy; Z20.828 Contact with and (suspected) exposure to other viral communicable diseases
CPT/HCPCS: 0241U; 36000; 36415; 71260; 80053; 83880; 84484; 85025; 85610; 87040; 93005; 93268; 93306; 94760; 94762; 96360; 96374; 96375; 99284; G0378; J1170; J2405; A9270-GY

== ENCOUNTER 2023-11-07 13:57 | Emergency (ER) | payer OTHER ==
--- NOTE | 2023-11-07 13:59 | ERPHSYRPT ---
- History of Present Illness Time Seen by Provider: 11/07/23 13:59 Source: patient Exam Limitations: no limitations Physician History: This is a 42-year-old white male patient who states he does not have a primary care provider who presents with chronic low back pain history that was worse today. In the last 6 months the patient has noticed intermittent bilateral leg numbness. He was able to ambulate fine into the emergency department room with no obvious distress per nursing staff. Patient states that he has been incontinent of urine intermittently for 6 months. He has also been intermittently incontinent of stool/bowels for the last 2 weeks. Patient states that in June 2023, he underwent a CT scan of the lumbar spine at [facility][1] which showed evidence of foraminal stenosis. He was seen by a neurosurgeon and they recommended surgery but the patient declined. Patient has a history of hyperlipidemia, hypertension, CHF, ascending aortic aneurysm, ulcerative colitis and spondylosis. Patient states that he cannot take NSAIDs because of his ulcerative colitis. Patient does have a ride home. Timing/Duration: other Severity: mild Modifying Factors: Improves With: movement Associated Symptoms: No abdominal pain, No shortness of breath, No chest pain, No loss of appetite Allergies/Adverse Reactions: metronidazole [From Flagyl] Allergy (Verified 11/07/23 14:06) NSAIDS (Non-Steroidal Anti-Inflamma Adverse Reaction (Verified 11/07/23 14:06) Home Medications: Gabapentin [Neurontin ] 800 mg PO TID 11/07/23 [History] Hx Tetanus, Diphtheria Vaccination/Date Given: Yes Hx Influenza Vaccination/Date Given: Yes (January 2022) Hx Pneumococcal Vaccination/Date Given: No Travel Risk - International Travel Have you traveled outside of the country in past 3 weeks: No - Emerging Infectious Disease Are you exhibiting symptoms associated with any current EIDs: No - Review of Systems Constitutional: No Symptoms Eyes: No Symptoms Ears, Nose, & Throat: No Symptoms Respiratory: No Symptoms Cardiac: No Symptoms Abdominal/Gastrointestinal: No Symptoms Genitourinary Symptoms: No Symptoms, No Urinary Retention Musculoskeletal: Back Pain, No Injury Skin: No Symptoms Psychological: No Symptoms Endocrine: No Symptoms Hematologic/Lymphatic: No Symptoms Immunological/Allergic: No Symptoms All Other Systems: Reviewed and Negative - Past Medical History Pertinent Past Medical History: Yes Neurological History: No Pertinent History ENT History: No Pertinent History Cardiac History: High Cholesterol, Hypertension Respiratory History: CHF Endocrine Medical History: No Pertinent History Musculoskeletal History: No Pertinent History, Other GI Medical History: Gallbladder Disease, Other History: No Pertinent History Psycho-Social History: No Pertinent History Male Reproductive Disorders: No Pertinent History Other Medical History: Assending aoritc anuerysm, ulcerative colitis, spindylosis - Past Surgical History Past Surgical History: Yes Neuro Surgical History: No Pertinent History Cardiac: No Pertinent History Respiratory: No Pertinent History Gastrointestinal: Cholecystectomy Genitourinary: No Pertinent History Musculoskeletal: No Pertinent History Male Surgical History: No Pertinent History Other Surgical History: 2 skin grafts, hemmroidectomy, anal spincterotomy 2018 - Social History Smoking Status: Former smoker Exposure to second hand smoke: No Drug Use: none Patient Lives Alone: Yes - Nursing Vital Signs Nursing Vital Signs: Initial Vital Signs Temperature 99.9 F 11/07/23 14:35 Pulse Rate 85 11/07/23 14:35 Blood Pressure 128/89 11/07/23 14:35 O2 Sat by Pulse Oximetry 96 11/07/23 14:35 Pain Scale Pain Intensity [Back] 7 Pain Intensity 7 - Physical Exam General Appearance: no apparent distress, alert, anxiety Eye Exam: PERRL/EOMI, eyes nml inspection Ears, Nose, Throat Exam: normal ENT inspection, moist mucous membranes Neck Exam: normal inspection, non-tender, supple, full range of motion Respiratory Exam: normal breath sounds, lungs clear, airway intact, No chest tenderness, No respiratory distress Cardiovascular Exam: regular rate/rhythm, normal heart sounds, normal peripheral pulses Gastrointestinal/Abdomen Exam: soft, normal bowel sounds, No tenderness Rectal Exam: not done Back Exam: normal inspection, normal range of motion, muscle spasm, No CVA tenderness, No vertebral tenderness Extremity Exam: normal inspection, normal range of motion (Lumbar level), pelvis stable Neurologic Exam: alert, oriented x 3, cooperative, sanitation inspector II-XII nml as tested, normal mood/affect, nml cerebellar function, nml station & gait, sensation nml Skin Exam: normal color, warm, dry Lymphatic Exam: No adenopathy SpO2 Interpretation: normal O2 Delivery: Room Air - Course Nursing assessment & vital signs reviewed: Yes Ordered Tests: Active Orders 24 hr Category Date Time Status LUMBAR SPINE W/O [CT] Stat Exams 11/07/23 14:37 Completed - Progress Progress: pain not gone completely Progress Note: 11/07/23 15:35 My medical decision making and the assignment of low to moderate complexity of this patient's medical issue today. The workup is based on review of the patient's past medical history, review of the patient's medication list, review of the patient's drug allergy list, review of the patient's prior CT scan of the lumbar spine results, findings on physical examination and history present illness. The workup in this patient includes CT scan of the lumbar spine without contrast. Differential diagnosis includes but not limited to acute exacerbation of chronic low back pain, acute spinal cord compression, spinal fractures 11/07/23 15:[address] scan of the lumbar spine without contrast was interpreted by the radiologist and I reviewed the impression. The impression states no acute compression fracture. There is stable, minimal L4-S1 broad-based disc bulge. This was present on the May 2022 CT scan of the abdomen pelvis without contrast. There is no spinal canal stenosis. Outpatient MRI for further in formation. Counseled pt/family regarding: diagnosis, need for follow-up, rad results Medical Desision Making - Diagnostic Testing Diagnostic test were ordered, analyzed, and reviewed by me: Yes Radiological Interpretation: Reviewed by me, Teleradiologist Report - Risk of complications The pt has a mod risk of morbidity or mortality based on: Need for prescription drug management - Departure Departure Disposition: Home Clinical Impression: Bulging lumbar disc Condition: Stable Critical Care Time: No Referrals: DOCTOR,NO FAMILY [Primary Care Provider] - Follow up/PCP as directed Additional Instructions: Take your medication as prescribed. From the provider list given to you, call to make appointment for follow-up as an outpatient. Discussed with them your back pain issues and possibly schedule an MRI of your lumbar spine. Prescriptions: Oxycodone HCl/Acetaminophen [Percocet 5-325 mg Tablet] 1 each PO Q8H PRN PRN #6 tablet MDD 3 PRN Reason: Moderate To Severe Pain Prednisone 10 mg [Deltasone 10 mg] 10 mg PO TID #12 tablet
[2023-11-07 14:36] VITALS: TEMP 99.9; O2SAT 96
--- NOTE | 2023-11-07 15:33 | XRAY ---
Indication: Low back pain. Bilateral leg numbness. Incontinence. Multiple contiguous axial images obtained through the lumbar spine. Sagittal and coronal reformatted images obtained. Comparison: CTA abdomen/pelvis May 30, 2022. Axial images again demonstrates minimal broad-based disc bulge at L4-S1 levels unchanged. No large disc herniation or spinal canal stenosis. Facets are symmetric. Sagittal and coronal reformatted images again demonstrates normal alignment. Vertebral body heights/disc spaces maintained. No acute compression fracture or subluxation. Visualized noncontrasted soft tissues are unremarkable. Impression: Stable minimal L4-S1 broad-based disc bulge. Remaining CT lumbar spine is negative. Outpatient MRI may yield further information if there remains clinical concern.
[2023-11-07] MEDS ORDERED: Norflex 60 MG/2 ML ONE (16:02)
[2023-11-07] MEDS ORDERED: solu-MEDROL ONE (16:02)
[2023-11-07] MEDS ORDERED: ZOFRAN ODT 4 MG ONE (16:02)
[2023-11-07] MEDS ORDERED: Sterile H2O 10 ml IJ ONE (16:02)
[2023-11-07] MEDS ORDERED: Hydromorphone 1 mg/ml Injection ONE (16:02)
[2023-11-07 16:04] VITALS: BP 124/88; PULSE 70; RESP 16
[2023-11-07] MEDS: ZOFRAN ODT 4 MG PO ONE (16:04)
[2023-11-07] MEDS: solu-MEDROL 125 MG, Sterile H2O 10 ml 2 ML IM ONE (16:05)
[2023-11-07] MEDS: Hydromorphone 1 mg/ml Injection IM ONE (16:06)
[2023-11-07] MEDS: Norflex 60 MG/2 ML IM ONE (16:08)
== END 2023-11-07 16:31 | disposition home or self-care (01) ==
LOC: ED 13:57
DX: M51.36 Other intervertebral disc degeneration, lumbar region (principal); M54.50 Low back pain, unspecified; E78.5 Hyperlipidemia, unspecified; I11.0 Hypertensive heart disease with heart failure; I50.9 Heart failure, unspecified; Z79.891 Long term (current) use of opiate analgesic; Z79.52 Long term (current) use of systemic steroids; Z79.899 Other long term (current) drug therapy
CPT/HCPCS: 72131; 96372; 99283; J1170; J2360; J2919; Q0162

== ENCOUNTER 2023-11-13 18:59 | Emergency (ER) | payer OTHER ==
[2023-11-13 21:09] VITALS: BP 120/86; PULSE 61; RESP 18; TEMP 98; O2SAT 95
--- NOTE | 2023-11-13 21:53 | ERPHSYRPT ---
- History of Present Illness Time Seen by Provider: 11/13/23 21:15 Source: patient Exam Limitations: no limitations Patient Subjective Stated Complaint: low back pain, left leg goes numb from time to time Triage Nursing Assessment: Pt ambulated into ER without diff. Pt c/o low back pain which is chronic, left leg numbness from time to time x6 months and incontinence x2 weeks off and on. Pt was seen here in the ER on 11/07/[address] Mathews for the exact complaint. Pt states "the pain is about the same, no increase in it from last time he was here". Pt is to f/u with pcp but can't get in till 12/04/23. Pt wants to see pain management but they don't accept a referral from ER dr it has to be from a PCP, per pt. Physician History: Patient is a 42-year-old male presents the emergency department for for pain man agement of his chronic low back pain. Patient was in our ED for the same on 11/07/2023. At that time patient received narcotic pain medication in the hospital as well as on discharge. Patient had a CAT scan that revealed a disc bulge. Patient states he ran out of his medication and he does not have a follow-up appointment to 730. Patient is requesting the same management that he received the last time he was here. I explained to our patient that guidelines do not support treating chronic musculoskeletal pain with narcotic. We offered patient a dose of steroids and muscle relaxer. Patient refused claiming that the treatment was not fair and not consistent. There is no change in the character of patient's low back pain today versus during his last visit on 11 06. No associated fever no saddle anesthesia. No change in bowel bladder function. No recent back procedure. Patient's symptomology are the same. Patient voiced no other complaints or concerns at this time. Timing/Duration: today Severity: moderate Modifying Factors: Improves With: movement Associated Symptoms: denies symptoms Allergies/Adverse Reactions: metronidazole [From Flagyl] Allergy (Verified 11/13/23 21:19) NSAIDS (Non-Steroidal Anti-Inflamma Adverse Reaction (Verified 11/13/23 21:19) Home Medications: Gabapentin [Neurontin ] 800 mg PO TID 11/07/23 [History] Hx Tetanus, Diphtheria Vaccination/Date Given: Yes Hx Influenza Vaccination/Date Given: No Hx Pneumococcal Vaccination/Date Given: No Travel Risk - International Travel Have you traveled outside of the country in past 3 weeks: No - Emerging Infectious Disease Are you exhibiting symptoms associated with any current EIDs: No - Review of Systems Constitutional: No Symptoms, No Fever, No Chills Eyes: No Symptoms, Discharge Ears, Nose, & Throat: No Symptoms Respiratory: No Symptoms, No Cough, No Dyspnea Cardiac: No Symptoms, No Chest Pain, No Edema, No Syncope Abdominal/Gastrointestinal: No Symptoms, No Abdominal Pain, No Nausea, No Vomiting, No Diarrhea Genitourinary Symptoms: No Symptoms, No Dysuria Musculoskeletal: No Symptoms, No Back Pain, No Neck Pain Skin: No Symptoms, No Rash Neurological: No Symptoms, No Dizziness, No Focal Weakness, No Sensory Changes Psychological: No Symptoms Endocrine: No Symptoms Hematologic/Lymphatic: No Symptoms Immunological/Allergic: No Symptoms All Other Systems: Reviewed and Negative - Past Medical History Pertinent Past Medical History: Yes Neurological History: No Pertinent History ENT History: No Pertinent History Cardiac History: High Cholesterol, Hypertension Respiratory History: CHF Endocrine Medical History: No Pertinent History Musculoskeletal History: Other GI Medical History: Gallbladder Disease, Other History: No Pertinent History Psycho-Social History: No Pertinent History Male Reproductive Disorders: No Pertinent History Other Medical History: Assending aoritc anuerysm, ulcerative colitis, spindylosis, chronic low back pain - Past Surgical History Past Surgical History: Yes Neuro Surgical History: No Pertinent History Cardiac: No Pertinent History Respiratory: No Pertinent History Gastrointestinal: Cholecystectomy Genitourinary: No Pertinent History Musculoskeletal: No Pertinent History Male Surgical History: No Pertinent History Other Surgical History: 2 skin grafts, hemmroidectomy, anal spincterotomy 2019 - Social History Smoking Status: Current every day smoker How long have you smoked: 30 yrs Exposure to second hand smoke: Yes Drug Use: marijuana Patient Lives Alone: Yes - Social Determinants of Health Will the patient participate in the screening: Yes Do you worry about a steady place to live?: No Do you have any problems with any of the following?: No known problems In the past 12 months,have you had to go without utilities?: No Transportation Issues: Yes Has anyone in your support network made you feel unsafe?: No Have you or anyone in your house had to go without enough: No - Nursing Vital Signs Nursing Vital Signs: Initial Vital Signs Temperature 98.0 F 11/13/23 21:08 Pulse Rate 61 11/13/23 21:08 Respiratory Rate 18 11/13/23 21:08 Blood Pressure 120/86 11/13/23 21:08 O2 Sat by Pulse Oximetry 95 11/13/23 21:08 Pain Scale Pain Intensity 6 - Physical Exam General Appearance: no apparent distress, alert Eye Exam: PERRL/EOMI, eyes nml inspection Ears, Nose, Throat Exam: moist mucous membranes Neck Exam: normal inspection, full range of motion Respiratory Exam: normal breath sounds, airway intact, No respiratory distress Gastrointestinal/Abdomen Exam: No tenderness, No mass Back Exam: normal inspection, normal range of motion, other (Patient sitting upright in bed. No acute distress. Range of motion appears to be within normal limits.) Extremity Exam: normal inspection, normal range of motion, pelvis stable Neurologic Exam: alert, oriented x 3, cooperative, normal mood/affect, nml cerebellar function, nml station & gait, sensation nml, No motor deficits Skin Exam: normal color, warm, dry, No rash Lymphatic Exam: No adenopathy SpO2 Interpretation: normal SpO2: 95 O2 Delivery: Room Air - Course Nursing assessment & vital signs reviewed: Yes Ordered Tests: Active Orders 24 hr Category Date Time Status ACO SDOH Referral ONCE Cons 11/13/23 21:19 Active - Progress Progress: unchanged Progress Note: Patient demanding Dilaudid management for his chronic back pain. He reports that this is the treatment he received the last time he was here and is requesting the same. Patient was also given Percocet for home and is requesting the same as well. I explained to our patient that guidelines do not support management of chronic musculoskeletal pain with narcotic. Patient refused muscle relaxer, Tylenol, Decadron steroid management as he has had a chronic back pain for 24 years and the only thing that helps his symptoms were narcotics. Patient was not content that he did not receive narcotics. Patient walked out of the room prior to completion of physical exam. Patient left without his discharge paperwork. Complexity problem addressed is moderate acute complicated. No critical care time. Complex of data reviewed and analyzed is none. No specialized testing ordered. Risk of complication and or risk morbidity/mortality patient management low. Vital stable. Time spent discharge patient is approximately 10 minutes. Plan of care established for shared decision making. No social determinants of health present impede follow-up. Portions of this note were created with voice recognition technology. There may be grammatical, spelling, punctuation or sound alike errors 11/13/23 22:01 Patient discharged AMA as he refused the recommended management for his low back pain. Patient left our ED before signing associated paperwork 11/13/23 22:04 Counseled pt/family regarding: diagnosis, need for follow-up - Departure Departure Disposition: AMA Clinical Impression: Chronic back pain Condition: Stable Critical Care Time: No Referrals: DOCTOR,NO FAMILY [Primary Care Provider] - Follow up/PCP as directed BEATRIZ HERRERA MD [ACTIVE STAFF] - Follow up/PCP as directed Additional Instructions: Discharge/Care Plan DONTA MAYES was seen on 11/13/23 in the Emergency Room. The patient was counseled regarding Diagnosis,Lab results, Imaging studies, need for follow up and when to return to the Emergency Room. Prescriptions given: Discharge Note I have spoken with the patient and/or caregivers. I have explained the patient's condition, diagnosis and treatment plan based on the information available to me at this time. I have answered the patient's and/or caregiver's questions and addressed any concerns. The patient and/or caregivers have as good understanding of the patient's diagnosis, condition and treatment plan as can be expected at this point. The vital signs have been stable. The patient's condition is stable and appropriate for discharge from the emergency department. The patient will pursue further outpatient evaluation with the primary care physician or other designated or consulting physician as outlined in the discharge instructions. The patient and/or caregivers are agreeable to this plan of care and follow-up instructions have been explained in detail. The patient and/or caregivers have received these instruction. The patient/and or caregivers are aware that any significant change in condition or worsening of symptoms should prompt an immediate return to this or the closest emergency department or call 911.
== END 2023-11-13 21:39 | disposition left against medical advice (07) ==
LOC: ED 18:59
DX: G89.29 Other chronic pain (principal); M54.50 Low back pain, unspecified; E78.5 Hyperlipidemia, unspecified; I11.0 Hypertensive heart disease with heart failure; I50.9 Heart failure, unspecified; Z79.899 Other long term (current) drug therapy; Z72.0 Tobacco use; Z59.82 Transportation insecurity
CPT/HCPCS: 99281